=== PATIENT | female | born 1960 | race Caucasian/White ===

== ENCOUNTER 2022-10-01 09:58 | Outpatient (REF) | payer OTHER, SELFPAY ==
--- NOTE | ~2022-10-01 | XR_ITS ---
EXAMINATION: XR CHEST CLINICAL INFORMATION: Cough, unspecified COMPARISON: September 2013. TECHNIQUE: 2 views of the chest were obtained. Patient rotated to the right. FINDINGS: No dominant airspace consolidation or pleural effusion observed. Pulmonary vascularity unremarkable. There is an opacity in the medial right base likely related to a pericardial fat pad. There are thoracic spondylitic changes. XR/XR chest 2V IMPRESSION: No evidence for acute process.
== END 2022-10-01 09:59 | disposition home or self-care (01) ==
LOC: HO.HMGCX 09:58
PROVIDERS: PCP Internal Medicine; Visit Provider Nurse Practitioner Family
DX: R05.9 Cough, unspecified (principal)
CPT/HCPCS: 71046

== ENCOUNTER 2022-12-01 07:44 | Outpatient (REF) | payer OTHER, SELFPAY ==
[2022-12-01 08:24] LABS: MANUAL DIFF FLAG NO
[2022-12-01 08:40] LABS: Basophils Absolute Auto 0.1 X10*3/uL (0.0-0.2); Basophils Percent Auto 0.7 % (0-2); Eosinophils Absolute Auto 0.3 X10*3/uL (0.0-0.4); Eosinophils Percent Auto 3.8 % (0-4); Hematocrit 44.5 % (37.0-47.0); Hemoglobin 14.2 g/dl (12.0-16.0); Imm Gran Abs Auto 0.02 X10*3/uL (0.00-0.03); Imm Gran Pct Auto 0.3 % (0.0-0.4); Lymphocytes Absolute Auto 2.5 X10*3/uL (1.2-4.9); Lymphocytes Percent Auto 33.8 % (20-40); Mean Corpuscular HGB Conc 31.9 g/dl (31.0-35.0); Mean Corpuscular Hemoglobin 27.8 pg (27.0-33.0); Mean Corpuscular Volume 87.3 fL (80.0-98.0); Mean Platelet Volume 9.8 fL (9.4-12.3); Monocytes Absolute Auto 0.6 X10*3/uL (0.1-1.2); Monocytes Percent Auto 7.9 % (2-11); Neutrophils Absolute Auto 3.9 x10*3/uL (2.0-8.3); Neutrophils Percent Auto 53.5 % (45-73); Platelet Count 269 X10*3/uL (160-400); Red Cell Distribution Width 13.4 % (11.0-16.0); White Blood Count 7.3 X10*3/uL (4.8-10.8)
[2022-12-01 09:15] LABS: Alanine Aminotransferase 41 U/L (0-31); Albumin Level 4.4 g/dL (3.5-5.0); Alkaline Phosphatase 108 U/L (39-117); Anion Gap 14 (12-20); Aspartate Amino Transferase 26 U/L (5-31); Bilirubin Total 0.6 mg/dL (0.0-1.0); Blood Urea Nitrogen 13 mg/dL (9-16); Calcium 9.9 mg/dL (8.4-10.2); Carbon Dioxide 26 mmol/L (22-29); Chloride 106 mmol/L (96-108); Cholesterol 243 mg/dL; Estimated Glomerular Filt Rate > 60; Glucose Fasting 96 mg/dL (60-99); HDL Cholesterol 78 mg/dL; LDL Cholesterol Calculated 146 mg/dl; Potassium 4.8 mmol/L (3.3-5.1); Sodium 141 mmol/L (135-145); Total Protein 6.9 g/dL (6.5-8.0); Triglycerides 98 mg/dL
[2022-12-01 09:33] LABS: TSH reflex Free T4 2.03 uIU/mL (0.32-4.0)
== END 2022-12-01 07:45 | disposition home or self-care (01) ==
LOC: HO.LAB 07:44
PROVIDERS: PCP Internal Medicine; Visit Provider Internal Medicine
DX: Z00.01 Encounter for general adult medical examination with abnormal findings (principal); E66.09 Other obesity due to excess calories; J44.9 Chronic obstructive pulmonary disease, unspecified; Z72.0 Tobacco use; E66.9 Obesity, unspecified
CPT/HCPCS: 36415; 80053; 80061; 84443; 85025

== ENCOUNTER 2023-02-25 08:33 | Outpatient (AMB) | payer OTHER, SELFPAY ==
--- NOTE | 2023-02-25 08:38 | AM.OFFWIN_ITS ---
Intake Vital Signs 02/25/23 08:42 BP 124/80 Blood Pressure Location Lt brachial Position Sitting Pulse 78 Pulse Source Pulse Oximeter Temp 98.2 F Temp Source Temporal Artery Scan Pulse Oximetry (%) 98 Oxygen Delivery Method Room Air Intake Visit Reasons: EP, Vomiting (kelley,masked) Intake Note: Patient here because she has been vomiting since saturday and hasnt been able to hold anything down since then. She has constant Nausea that does not subside. Patient Tobacco Use Status: Current someday Tobacco user Allergies No Known Allergies Allergy (Mild, Verified 02/25/23 08:44) NONE Do you need a note to return to daycare/school/sports/work: No HPI EP, Vomiting (kelley,masked) HPI Details Patient presents today with c/o nausea and vomiting. On Saturday night she began vomiting and this lasted about 10 hours. She has not vomited since Saturday morning, however has had persistent nausea since then. She has only been tolerating small sips of gatorade. Denies any fever or diarrhea. Denies any abdominal pain. Denies any dizziness. [facility] Medical History Chronic bronchitis Family History Father Cancer Paternal Grandmother Cancer Mother CAD (coronary artery disease) Social History Alcohol intake: current Alcohol intake frequency: a few times a week Patient Tobacco Use Status: Current someday Tobacco user Cigarettes Per Day: 5 Review of Systems Const All systems reviewed & are unremarkable except as noted in HPI and below Physical Exam Vital Signs: Last Vital Signs Temp 98.2 F 02/25/23 08:42 Pulse 78 02/25/23 08:42 BP 124/80 02/25/23 08:42 Pulse Ox 98 02/25/23 08:42 Oxygen Delivery Method Room Air 02/25/23 08:42 Const General: cooperative and no acute distress Neck Neck: Yes no lymphadenopathy Resp Effort & Inspection: normal respiratory effort and able to speak in complete sentences Auscultation: clear to auscultation bilaterally Cardio Jugular venous distension: no JVD Palpation: normal PMI Rate: regular rate Rhythm: regular rhythm GI Inspection: Yes normal to inspection Palpation (GI): Soft to palpation and No hepatosplenomegaly present Auscultation: Hypoactive bowel sounds present Skin General skin exam: no rashes or lesions noted Extrem General: Yes capillary refill normal and Yes no clubbing, cyanosis or edema Psych Appearance: grossly normal Mental Status: mental status grossly normal Speech and movement: Normal speech and movement present Assessment & Plan Assessment & Plan (1) Nausea: Code(s): R11.0 - Nausea Plan: Ondansetron prn for persistent nausea. Likely a GI virus and symptoms are self- limiting. Discussed that her VS at this time are stable. She should try to take in PO fluids/electrolytes and advance diet as tolerated. If she develops any fever, abdominal pain, dizziness, or does not improve with treatment and conservative measures, she should return to the clinic of further evaluation. She agrees to plan. Medications: New ondansetron 4 mg PO Q8H PRN 21 tabs 0RF nausea and vomiting 7 days R11.0 - Nausea Coding Level of Care Code Est Pt Level 3 (05423) Diagnoses Nausea R11.0
[2023-02-25 08:42] VITALS: BP 124/80; PULSE 78; TEMP 36.8; O2SAT 98
== END 2023-02-25 09:12 | disposition home or self-care (01) ==
PROVIDERS: PCP Internal Medicine; Visit Provider Nurse Practitioner Family
DX: R11.0 Nausea (principal)
CPT/HCPCS: 99213

== ENCOUNTER 2023-04-06 08:08 | Outpatient (REF) | payer OTHER, SELFPAY ==
--- NOTE | ~2023-04-06 | MM_ITS ---
EXAMINATION: MM SCREENING DIGITAL BREAST TOMOSYNTHESIS, BILATERAL CLINICAL INFORMATION: Screening. Asymptomatic. COMPARISON: Mammography: Prior images are available. This study functions as a new baseline. TECHNIQUE: Digital breast tomosynthesis is performed in both the craniocaudal and mediolateral oblique views along with computer-aided detection (CAD). Synthesized 2D images are generated from the tomosynthesis. FINDINGS: There are scattered areas of fibroglandular density (ACR BI-RADS breast composition Category b). There are no significant masses, abnormal calcifications, or other abnormalities. MM/MM tomosynthesis screening BI IMPRESSION: No mammographic evidence of malignancy. ASSESSMENT: BI-RADS BI-RADS 1 - Negative RECOMMENDATION: Routine annual mammography screening. 1 year F/U This examination should not preclude the clinical evaluation of a suspicious palpable abnormality. This patient's information was entered into a reminder system with a target due date for their next mammogram.
== END 2023-04-06 08:09 | disposition home or self-care (01) ==
LOC: HO.MAMMO 08:08
PROVIDERS: PCP Internal Medicine; Visit Provider Internal Medicine
DX: Z12.31 Encounter for screening mammogram for malignant neoplasm of breast (principal)
CPT/HCPCS: 77063; 77067

== ENCOUNTER → 2023-04-06 08:30 | Outpatient (BNV) | payer OTHER, SELFPAY | PROVIDERS: PCP Internal Medicine; Visit Provider Radiology Diagnostic Radiology | DX: Z12.31 Encounter for screening mammogram for malignant neoplasm of breast (principal) | CPT/HCPCS: 77063; 77067 ==

== ENCOUNTER 2023-04-12 08:08 | Outpatient (AMB) | payer OTHER, SELFPAY ==
--- NOTE | 2023-04-12 09:00 | AM.OFFWIN_ITS ---
Intake Vital Signs 04/12/23 09:02 Weight 79.379 kg BP 120/80 Blood Pressure Location Rt brachial Position Sitting Pulse 80 Pulse Source Pulse Oximeter Pulse Oximetry (%) 97 Oxygen Delivery Method Room Air Intake Visit Reasons: EP LT wrist Intake Note: Patient here for possible fracture of wrist, she is unable to move wrist, hold anything. she was standing on a chair and her pants caught on the chair and fell. Patient Tobacco Use Status: Current someday Tobacco user Allergies No Known Allergies Allergy (Mild, Verified 04/12/23 09:03) NONE Do you need a note to return to daycare/school/sports/work: No HPI HPI Comments History of Present Illness Details 908 63-year-old female history of asthma, [place] PD, vertigo since to the clinic for evaluation of left wrist pain status post fall, now complaining left wrist pain swelling, and inability to move left wrist. Patient reports she was standing on a chair, her pants got caught on the chair, she fell to the ground and tried to catch herself with her left wrist, did not hit her head, no loss of consciousness. Left wrist pain worse with movement better at rest 10/10 pain reported. No numbness or tingling, headache, vision changes, dizziness, weakness, nausea, vomiting, abdominal pain, headache, vision changes, dizziness or weakness. Patient not on blood thinners. Physical exam significant for pain with range of motion of left wrist, normal range of motion to right wrist, unable to assess strength to left wrist secondary to pain. + swelling to left wrist and ttp to medial and lateral aspect of L wrist. Wedding band still on L hand. 2+ radial pulses equal bilateral. No wrist drop. Capillary refill less than 2 seconds to by lateral her extremities digit. Normal sensation distally. Concerns for fracture, dislocation versus sprain or strain. No signs of tried to Donovan, neurovascular compromise no signs of traumatic injury to head, neck, chest, abdomen or pelvis Advised patient we should try to remove wedding band she is refusing at this time. Advised to try at home when pain is controled. Plan x-ray, immobilize left wrist and toradol. Educated patient on diagnosis and treatment plan, answered all question, patient verbalizes understanding. At this time patient will be discharged home, advised to return with new or worsening symptoms. Educated on worrisome signs and symptoms and when to return . At this time I feel comfortable discharge home. [facility] Medical History Chronic bronchitis Family History Father Cancer Paternal Grandmother Cancer Mother CAD (coronary artery disease) Social History Alcohol intake: current Alcohol intake frequency: a few times a week Patient Tobacco Use Status: Current someday Tobacco user Cigarettes Per Day: 5 Review of Systems Const Details: Constitutional : No Weight loss, No Fever, No Chills, No Fatigue, No Malaise ENT/Mouth : No sore throat, No Rhinorrhea Eyes: No Eye Pain, No Swelling, No Redness Cardiovascular : No Chest Pain, No SOB, No Dyspnea on Exertion, No Orthopnea, No Edema, No Palpitations Respiratory : No Cough, No Sputum, No Wheezing Gastrointestinal : No Nausea, No Vomiting, No Diarrhea, No Constipation, No abdominal Pain, No Hematochezia, No Melena Genitourinary : No Dysuria, No Urinary Frequency, No Hematuria, Musculoskeletal : + joint pain, No Myalgias, + Joint Swelling Skin : No Skin Lesions, No rash Neuro : No Weakness, No Numbness, No Dizziness, No Headache Psych : No Anxiety/Panic, No Depression All other systems reviewed and are negative All systems reviewed & are unremarkable except as noted in HPI and below Physical Exam Vital Signs: Last Vital Signs Pulse 80 04/12/23 09:02 BP 120/80 04/12/23 09:02 Pulse Ox 97 04/12/23 09:02 Oxygen Delivery Method Room Air 04/12/23 09:02 vss Appearance: Alert.? Oriented X3.? No acute distress.? Head: Normocephalic, atraumatic, no step-offs or deformities Eyes: Pupils equal, round and reactive to light.? CVS: Normal heart rate and rhythm.? Pulses normal.? Respiratory: No respiratory distress.? Breath sounds normal.? Abdomen: Soft and nontender.? Skin: Skin warm and dry.? Normal skin color.? Normal skin turgor.? Extremities: No lower extremity edema.? No calf ttp.+pain with range of motion of left wrist, normal range of motion to right wrist, unable to assess strength to left wrist secondary to pain.+ swelling to left wrist and ttp to medial and lateral aspect of L wrist. Wedding band still on L hand. 2+ radial pulses equal bilateral. No wrist drop. Capillary refill less than 2 seconds to by lateral her extremities digit. Normal sensation distally. Back: No midline tenderness, no C-spine tenderness, full range of motion, no CVA tenderness bilaterally Neuro: Oriented X 3.? No motor deficit.? No sensory deficit. CN 2-12 intact Assessment & Plan Assessment & Plan (1) Left wrist pain: Code(s): M25.532 - Pain in left wrist Plan Take your medications as prescribed. If you were prescribed antibiotics today, it is important that you take your medication to their entirety, do not skip any doses, do not finish them early. Follow-up with your primary care provider this week. Return to the emergency department with new or worsening symptoms. Such as fevers, chills, chest pain, shortness of breath, nausea, vomiting, dizziness, headache, vision changes, lethargy In case of emergency call 911 Orders: Orders XR wrist LT min 3V Today M25.532 - Pain in left wrist AMB Ketorolac Injection Today M25.532 - Pain in left wrist Referrals Orthopedics Referral M25.532 - Pain in left wrist Medications: New ketorolac 10 mg PO Q8H PRN 15 tabs 0RF pain ketorolac 30 mg IM ONCE 1 mL 0RF M25.532 - Pain in left wrist Coding Level of Care Code Est Pt Level 3 (25312) Diagnoses Left wrist pain M25.532
[2023-04-12 09:02] VITALS: BP 120/80; PULSE 80; O2SAT 97
== END 2023-04-12 09:58 | disposition home or self-care (01) ==
PROVIDERS: PCP Internal Medicine; Visit Provider Physician Assistant
DX: M25.532 Pain in left wrist (principal)
CPT/HCPCS: 96372; 99213; J1885

== ENCOUNTER 2023-04-12 09:26 | Outpatient (REF) | payer OTHER, SELFPAY ==
--- NOTE | ~2023-04-12 | XR_ITS ---
EXAMINATION: XR WRIST, LEFT CLINICAL INFORMATION: Left wrist pain COMPARISON: Previous dated 12/04/2013 TECHNIQUE: PA, lateral, and oblique views of the left wrist. FINDINGS: No acute finding. Some early degenerative changes are noted. Articulation with the radius with the lunate and navicular and the articulation of the navicular with the multangulars and base of the thumb. No acute fracture or dislocation is seen. There is no bony erosion. No osteopenia. XR/XR wrist LT min 3V IMPRESSION: Findings suggest some early degenerative changes. No acute finding
== END 2023-04-12 09:27 | disposition home or self-care (01) ==
LOC: HO.HMGCX 09:26
PROVIDERS: PCP Internal Medicine; Visit Provider Physician Assistant
DX: M25.532 Pain in left wrist (principal)
CPT/HCPCS: 73110

== ENCOUNTER 2023-07-08 08:31 | Outpatient (AMB) | payer OTHER, SELFPAY ==
--- NOTE | 2023-07-08 08:33 | AM.OFFWIN_ITS ---
Intake Vital Signs 07/08/23 08:34 Height 5 ft 3 in Weight 175 lb BMI 31.0 BP 122/80 Blood Pressure Location Rt brachial Position Sitting Pulse 76 Pulse Source Pulse Oximeter Temp 98.2 F Temp Source Temporal Artery Scan Pulse Oximetry (%) 98 Oxygen Delivery Method Room Air Intake Visit Reasons: EST/sore throat (lobby masked) Intake Note: pt is here for c.o chest congestion, cough, ear pain bilateral Patient Tobacco Use Status: Current someday Tobacco user Allergies No Known Allergies Allergy (Mild, Verified 07/08/23 08:36) NONE Do you need a note to return to daycare/school/sports/work: Yes HPI EST/sore throat (lobby masked) HPI Details 63 year old female patient with PMH of C OPD presents today with a 1 week history of cough, nasal congestion, intermittent shortness of breath, b/l ear pain. Her recently and she had been around many people in close contact due to services etc. She has been using her albuterol inhaler with some benefit. Denies any fever or chills. [facility] Medical History Chronic bronchitis Family History Father Cancer Paternal Grandmother Cancer Mother CAD (coronary artery disease) Social History Alcohol intake: current Alcohol intake frequency: a few times a week Patient Tobacco Use Status: Current someday Tobacco user Cigarettes Per Day: 5 Review of Systems Const All systems reviewed & are unremarkable except as noted in HPI and below Physical Exam Const General: cooperative and no acute distress HEENT Head: Yes normal to inspection Ears: hearing grossly normal bilaterally, external ears normal and TM abnormal (erythematous, bulging b/l R>L) General nose exam: Normal external nose present, Normal nares present and Nasal discharge present mucoid Face and sinus: Yes normal facial exam Mouth: Normal oral and palatal mucosa present and moist mucous membranes Throat: Yes posterior oropharynx abnormal (mild erythema) Neck Neck: Yes no lymphadenopathy Resp Effort & Inspection: Actively coughing Quality: actively coughing Auscultation: rhonchi (otherwise clear LS) upper bilaterally Cardio Jugular venous distension: no JVD Palpation: normal PMI Rate: regular rate Rhythm: regular rhythm Skin General skin exam: no rashes or lesions noted Extrem General: Yes capillary refill normal and Yes no clubbing, cyanosis or edema Psych Appearance: grossly normal Mental Status: mental status grossly normal Speech and movement: Normal speech and movement present Assessment & Plan Assessment & Plan (1) Acute bronchitis with chronic obstructive pulmonary disease (COPD): Code(s): J44.0 - Chronic obstructive pulmonary disease with (acute) lower respiratory infection; J20.9 - Acute bronchitis, unspecified Plan: Will start patient on augmentin bid. Reviewed indications, use possible s/e. She can continue to use her albuterol inhaler prn. She declines need for prednisone or viral testing. Advised ongoing otc cold/flu medication as needed for symptomatic treatment. She should continue her breathing exercises at home. If she does not improve with treatment she should return to the clinic for further evaluation. She verbalizes understanding and agrees to plan. (2) Bilateral otitis media: Code(s): H66.93 - Otitis media, unspecified, bilateral Qualifiers: Otitis media type: unspecified nonsuppurative Qualified Code(s): H65.93 - Unspecified nonsuppurative otitis media, bilateral Plan As above. Medications: New amoxicillin-pot clavulanate 875-125 mg 1 tab PO BID 20 tabs 0RF 10 days H65.93 - Unspecified nonsuppurative otitis media, bilateral, J20.9 - Acute bronchitis, unspecified, J44.0 - Chronic obstructive pulmonary disease with (acute) lower respiratory infection Coding Level of Care Code Est Pt Level 3 (14216) Diagnoses Acute bronchitis with chronic obstructive pulmonary disease (COPD) J44.0; J20.9 Bilateral non-suppurative otitis media H65.93 Otitis media type: unspecified nonsuppurative
[2023-07-08 08:34] VITALS: BP 122/80; PULSE 76; TEMP 36.8; O2SAT 98; BMI 31.0
== END 2023-07-08 08:49 | disposition home or self-care (01) ==
PROVIDERS: PCP Internal Medicine; Visit Provider Nurse Practitioner Family
DX: J44.0 Chronic obstructive pulmonary disease with (acute) lower respiratory infection (principal); J20.9 Acute bronchitis, unspecified; H65.93 Unspecified nonsuppurative otitis media, bilateral
CPT/HCPCS: 99213

== ENCOUNTER 2023-10-17 14:38 | Outpatient (AMB) | payer OTHER, SELFPAY ==
[2023-10-17 14:40] VITALS: BP 126/88; PULSE 83; TEMP 36.8; O2SAT 96
--- NOTE | 2023-10-17 14:40 | AM.OFFWIN_ITS ---
Intake Vital Signs 10/17/23 14:40 Height 5 ft 3 in BP 126/88 Blood Pressure Location Lt brachial Position Sitting Pulse 83 Pulse Source Pulse Oximeter Temp 98.2 F Temp Source Oral Pulse Oximetry (%) 96 Oxygen Delivery Method Room Air Intake Visit Reasons: EP bronchial chest pain (lobby) Intake Note: Pt is here for a cough and sob with a wheeze that she has had for about a week that has been getting worse pt says she chest pain when she coughs says the pain is mostly on the right side Patient Tobacco Use Status: Current someday Tobacco user Allergies No Known Allergies Allergy (Mild, Verified 10/17/23 14:42) NONE Medication List - Last Reconciled 10/17/23 by CARLEY Spear albuterol sulfate 90 mcg/actuation 1 inh inhalation QID PRN amoxicillin-pot clavulanate 500-125 mg (Augmentin) 1 tab PO BID 7 days HPI HPI Comments History of Present Illness Details 63-year-old female presents today compla ining of increasing cough pleuritic chest pain time the last 2 days. She states she had home on commitment pleuritic pain last week but now has significant congestion and cough that is increasing in intensity over the last 2 days. She has a past medical history of COPD of which she is using a albuterol inhaler p.r.n. she denies any fever or chills her pleuritic who is on the right not on the left [facility] Medical History Chronic bronchitis Family History Father Cancer Paternal Grandmother Cancer Mother CAD (coronary artery disease) Social History Alcohol intake: current Alcohol intake frequency: a few times a week Patient Tobacco Use Status: Current someday Tobacco user Cigarettes Per Day: 5 Review of Systems Eyes Reports no additional complaints ENT Reports nasal congestion Card Reports chest pain (pleuritic CP) and Reports dyspnea Resp Reports chest congestion, Reports cough and Reports dyspnea GI Reports no additional complaints Physical Exam Vital Signs: Last Vital Signs Temp 98.2 F 10/17/23 14:40 Pulse 83 10/17/23 14:40 BP 126/88 10/17/23 14:40 Pulse Ox 96 10/17/23 14:40 Oxygen Delivery Method Room Air 10/17/23 14:40 Const General: ill appearing HEENT Head: Yes normal to inspection, Yes normocephalic and Yes atraumatic Ears: hearing grossly normal bilaterally and TM abnormal erythematous General nose exam: Normal external nose present Throat: Yes posterior oropharynx normal Resp Effort & Inspection: normal respiratory effort Auscultation: rales on the left in the lower lung cook Cardio Rate: regular rate Rhythm: regular rhythm Office Procedures Nebulizer Treatment Nebulizer Treatment [id number]/MDI RX initial, or Nebulizer Subsequent Treatment Office Meds albuterol sulfate 2.5 mg/3 mL (0.083 %) solution for nebulization Performing Provider: CARLEY Spear Performing Location: [facility] [place] Walk In [facility] Documented (not given) by: Caty Golden RN on 10/17/23 15:56 Reason Not Given: No Longer Necessary ipratropium 0.5 mg-albuterol 3 mg (2.5 mg base)/3 mL nebulization soln Performing Provider: CARLEY Spear Performing Location: [facility] [place] Walk In [facility] [place] Administered by: Caty Golden RN on 10/17/23 15:56 Dose Route Admin Location Dispensed Lot Number Expiration Date [facility] Pharmacists 3 mL inhalation 3 mL [id number] 04/28/24 [id number] [facility] Assessment & Plan Assessment & Plan (1) Cough: Code(s): R05.9 - Cough, unspecified Plan: The patient will take antibiotics are use albuterol b.i.d. for 5 days regular rate. She has a follow-up scheduled with her PCP within the next month (2) Asthmatic bronchitis with acute exacerbation: Code(s): J45.901 - Unspecified asthma with (acute) exacerbation Plan: see plan Plan see plan Orders: Orders XR chest 2V Today R05.9 - Cough, unspecified AMB Nebulizer Treatment Today R05.9 - Cough, unspecified Medications: New amoxicillin-pot clavulanate 500-125 mg (Augmentin) 1 tab PO BID 14 tabs 0RF 7 days Coding Level of Care Code Est Pt Level 3 (31497) Diagnoses Cough R05.9 Asthmatic bronchitis with acute exacerbation J45.901 CPT Codes Nebulizer Treatment - Nebulizer Treatment, initial or subsequent: 03453- Nebulizer/MDI RX initial, or Nebulizer Subsequent Treatment ([id number])
== END 2023-10-17 16:31 | disposition home or self-care (01) ==
PROVIDERS: PCP Internal Medicine; Visit Provider Physician Assistant Medical
DX: R05.9 Cough, unspecified (principal); J45.901 Unspecified asthma with (acute) exacerbation
CPT/HCPCS: 94640; 99213; J7620

== ENCOUNTER 2023-10-17 14:58 | Outpatient (REF) | payer OTHER, SELFPAY ==
--- NOTE | ~2023-10-17 | XR_ITS ---
EXAMINATION: XR CHEST CLINICAL INFORMATION: Cough. COMPARISON: 10/01/2022 TECHNIQUE: 2 views of the chest were obtained. FINDINGS: Lungs are well expanded and without evidence of acute disease. No interstitial infiltrate, consolidation or pleural effusion. Cardiac silhouette is normal in size. Again noted are the opacities at the medial bases from the paracardiac fat pads. The hilar contours are normal. Mild spondylosis of the thoracic spine. XR/XR chest 2V IMPRESSION: No evidence of pneumonia. No acute pulmonary disease.
== END 2023-10-17 14:59 | disposition home or self-care (01) ==
LOC: HO.HMGCX 14:58
PROVIDERS: PCP Internal Medicine; Visit Provider Physician Assistant Medical
DX: R05.9 Cough, unspecified (principal)
CPT/HCPCS: 71046

== ENCOUNTER 2023-11-27 14:20 | Outpatient (AMB) | payer OTHER, SELFPAY ==
--- NOTE | 2023-11-27 14:30 | A.OFFPC_ITS ---
Vital Signs 11/27/23 14:31 Height 5 ft 3 in Weight 180 lb BMI 31.9 BP 120/76 Blood Pressure Location Rt brachial Position Sitting Pulse 85 Pulse Source Pulse Oximeter Pulse Oximetry (%) 97 Oxygen Delivery Method Room Air Intake Visit Reasons: Physical Exam - see comments Allergies No Known Allergies Allergy (Mild, Verified 11/27/23 14:32) NONE Medication List - Last Reconciled 11/27/23 by Marlene Dumont MD albuterol sulfate 90 mcg/actuation 1 inh inhalation QID PRN Tobacco use date assessed: 11/27/23 Dental Screening Dental Screen Date: 11/27/23 Did you have a dental visit in the last 12 months?: Yes Did you have a dental problem in the last 6 months where you did not have access to dental care?: No Was dental information given to patient?: Patient has dentist HPI Physical Exam - see comments HPI Details Patient is a 63-year-old female with a history of smoking years Patient lost her recently she is having difficulty coping with the loss Have offered her medication but she declined And also declined to have therapy Patient says that she is ready to quit smoking but because of her depression she is having difficulty However she does not want any help She declined to do colonoscopy but agrees to do Cologuard, order placed Patient has appointment with OBGYN And she had mammogram March of last year She also had labs last year which were all normal except for 1 liver enzyme which was 41 We will repeat it again next year. BMI is elevated need to lose weight. She most likely have COPD, last time she had inhaler sent it was too expensive so she never got it She is requesting albuterol inhaler which I have sent an I have also sent Symbicort for the patient She will get back to me if it is too expensive, pharmacy can help her find the inhaler that she can afford I have also offered her updraft treatment option which she declined at this time. [facility] Medical History Chronic bronchitis Surgical History Hx of tonsillectomy H/O right knee surgery Family History Father Cancer Paternal Grandmother Cancer Mother CAD (coronary artery disease) Social History Housing: Apartment Alcohol intake: current Alcohol intake frequency: a few times a week Patient Tobacco Use Status: Current someday Tobacco user Tobacco use type: Cigarette Cigarettes Per Day: 5 e-Cigarette/Vaping Use: Never Used service: No Current occupational status: employed Cognitive needs: No Hearing needs: No Vision needs: Yes Questionnaire PHQ-9 Over the last 2 weeks, how often have you been bothered by any of the following problems? 1. Little interest or pleasure in doing things: not at all 2. Feeling down, depressed, or hopeless: several days 3. Trouble falling or staying asleep, or sleeping too much: not at all 4. Feeling tired or having little energy: several days 5. Poor appetite or overeating: not at all 6. Feeling bad about yourself - or that you are a failure or have let yourself or your family down: not at all 7. Trouble concentrating on things, such as reading the newspaper or watching television: not at all 8. Moving or speaking so slowly that other people could have noticed. Or the opposite - being so fidgety or restless that you have been moving around a lot more than usual: not at all 9. Thoughts that you would be better off or of hurting yourself in some way: not at all Total score: 2 Depression Screening Interpretation: Negative Depression Screening Done: Yes 98395 - PHQ-9 Billing: Yes Source: Developed by Drs. Valentín Russo, Yadi Cho, Quoc Son and colleagues, with an educational jef from [employer]. Thrive Questionnaire Date Thrive assessed: 11/27/23 I am a: Patient What is your living situation today?: I have a steady place to live Within the past 12 months, did the food you bought not last and you didn't have the money to get more?: Never true Within the past 12 months, did you worry whether your food would run out before you got money to buy more?: Never true Do you have trouble paying for medicines?: No Do you have trouble getting transportation to medical appointments?: No Do you have trouble paying your heating and electricity bill?: No Do you have trouble taking care of your child, family member or friend?: No Do you have trouble with day-to-day activities such as bathing, preparing meals, shopping, managing finances, etc.?: No Are you currently unemployed and looking for a job?: No Are you interested in more education?: No Please select the resources that you would like help with: None Currently or been in a relationship where the following occur: no concerns reported THRIVE Score: 0 AUDIT C Alcohol Use Questionnaire (AUDIT-C) 1. How often do you have a drink containing alcohol?: Monthly or less 2. How many drinks containing alcohol do you have on a typical day when you are drinking?: 1 or 2 3. How often do you have six or more drinks on one occasion?: Never Total Score: 1 Score Reviewed/Action Taken: Yes KIRAN-7 AMB Questionnaire KIRAN-7 Date KIRAN - 7 assessed: 11/27/23 Feeling nervous, anxious, or on edge: 1 = Several days Not being able to stop or control worryin = Several days Worrying too much about different things: 1 = Several days Trouble relaxin = Several days Being so restless that it is hard to sit still: 0 = Not at all Becoming easily annoyed or irritable: 0 = Not at all Feeling afraid as if something awful might happen: 0 = Not at all Total KIRAN-7 score (0-4 normal; 5-9 mild; 10-14 moderate; 15-21 severe): 4 Source: Developed by Drs. Valentín Russo, Yadi Cho, Quoc Son and colleagues, with an educational jef from [employer]. KIRAN-7 Assessment Billing KIRAN-7 Assessment Tool: KIRAN-7 Assessment 04660 Review of Systems Const Denies chills, Denies fever(s) and Denies headache(s) Eyes Denies blurry vision ENT Denies headache(s), Denies nasal discharge, Denies nasal obstruction, Denies odynophagia and Denies sinus pain Card Denies chest pain at rest and Denies chest pain with activity Resp Denies hemoptysis GI Denies diarrhea, Denies odynophagia, Denies vomiting and Denies hematemesis Reports as per HPI Musc Denies abnormal gait Skin/Breast Reports as per HPI Neuro Denies Neuro-related abnormal movements, Denies Abnormal speech present, Denies abnormal gait, Denies headache(s) and Denies Sensory deficit (Neuro) Psych Denies mood swings and Denies paranoia Endo Reports as per HPI Gurdeep/Lymph Reports as per HPI Aller/Immun Reports as per HPI Physical exam (Primary Care) Vital Signs: Last Vital Signs Pulse 85 11/27/23 14:31 BP 120/76 11/27/23 14:31 Pulse Ox 97 11/27/23 14:31 Oxygen Delivery Method Room Air 11/27/23 14:31 BMI result Body Mass Index 31.9 Tobacco/Smoking Status: Tobacco use Status Tobacco use date assessed 11/27/23 11/27/23 14:36 Patient Tobacco Use Status Current someday Tobacco 11/27/23 14:36 Tobacco use type Cigarette 11/27/23 14:36 e-Cigarette/Vaping Use Never Used 11/27/23 14:36 PHQ-9: PHQ-9 Score PHQ-9: Total score 2 11/27/23 15:16 Depression Screening Interpretation: Negative Thrive Assessment: Date of Thrive Assessment Date Thrive assessed 11/27/23 11/27/23 15:16 Currently or been in a relationship where the following occur: no concerns reported Const General: cooperative, comfortable and no acute distress Orientation/consciousness: patient oriented x3 HENMT Head: Yes normocephalic and Yes atraumatic Eyes General: appearance normal, both eyes and all related structures Pupils: Equal, round and reactive pupils present EOM: EOMs intact bilaterally Neck Neck: Yes supple and No lymphadenopathy Thyroid: Thyroid normal Lymphatic: no lymphadenopathy noted Resp Effort & Inspection: normal respiratory effort and able to speak in complete sentences Auscultation: clear to auscultation bilaterally Cardio Heart sounds: S1 normal heart sound present and S2 normal heart sound present GI Palpation (GI): Soft to palpation and nontender Auscultation: normal bowel sounds General: Yes no CVA tenderness Back/Spine/Pelvis Back: no CVA tenderness Skin General skin exam: elasticity normal and turgor normal Neuro General: patient oriented x3 and gait normal Cranial nerves: Yes Equal, round and reactive pupils present Speech: No Abnormal speech present Sensory Exam: No Sensory deficit (Neuro) Coordination: tandem gait normal and Romberg test negative Extrem General: Yes normal exam except as noted and No edema Assessment and Plan Assessment & Plan (1) Skin cancer screening: Code(s): Z12.83 - Encounter for screening for malignant neoplasm of skin (2) Encounter for general adult medical examination with abnormal findings: Code(s): Z00.01 - Encounter for general adult medical examination with abnormal findings (3) Tobacco abuse: Code(s): Z72.0 - Tobacco use (4) COPD (chronic obstructive pulmonary disease): Code(s): J44.9 - Chronic obstructive pulmonary disease, unspecified Qualifiers: COPD type: unspecified COPD Qualified Code(s): J44.9 - Chronic obstructive pulmonary disease, unspecified (5) Obesity due to excess calories: Code(s): E66.09 - Other obesity due to excess calories Qualifiers: Body mass index: BMI 31.0-31.9 Obesity classification: adult class 1 (BMI 30 - 34.9) Serious obesity comorbidity presence: without serious comorbidity Qualified Code(s): E66.09 - Other obesity due to excess calories; Z68.31 - Body mass index [BMI] 31.0-31.9, adult (6) Grieving: Code(s): F43.21 - Adjustment disorder with depressed mood Plan Patient is a 63-year-old female with a history of smoking years Patient lost her recently she is having difficulty coping with the loss Have offered her medication but she declined And also declined to have therapy Patient says that she is ready to quit smoking but because of her depression she is having difficulty However she does not want any help She declined to do colonoscopy but agrees to do Cologuard, order placed Patient has appointment with OBGYN And she had mammogram March of last year She also had labs last year which were all normal except for 1 liver enzyme w hich was 41 We will repeat it again next year. BMI is elevated need to lose weight. She most likely have COPD, last time she had inhaler sent it was too expensive so she never got it She is requesting albuterol inhaler which I have sent an I have also sent Symbicort for the patient She will get back to me if it is too expensive, pharmacy can help her find the inhaler that she can afford I have also offered her updraft treatment option which she declined at this time. Patient has a lot of moves all over body, have placed a Dermatology consultation Orders: Referrals Cologuard Test Z12.11 - Encounter for screening for malignant neoplasm of colon, Z12.12 - Encounter for screening for malignant neoplasm of rectum Dermatology Referral Z12.83 - Encounter for screening for malignant neoplasm of skin Medications: New budesonide-formoterol 160-4.5 mcg/actuation (Symbicort) 2 puffs inhalation BID 10.2 grams 3RF 30 days J45.909 - Unspecified asthma, uncomplicated Refilled albuterol sulfate 90 mcg/actuation 1 inh inhalation QID PRN 6.7 grams 1RF shortness of breath or wheezing Coding Level of Care Code Est Pt Prev Care 40-64y(12528) Diagnoses Skin cancer screening Z12.83 Encounter for general adult medical examination with abnormal findings Z00.01 Tobacco abuse Z72.0 Chronic obstructive pulmonary disease, unspecified COPD type J44.9 COPD type: unspecified COPD Class 1 obesity due to excess calories without serious comorbidity with body mass index (BMI) of 31.0 to 31.9 in adult E66.09; Z68.31 Body mass index: BMI 31.0-31.9 Obesity classification: adult class 1 (BMI 30 - 34.9) Serious obesity comorbidity presence: without serious comorbidity Grieving F43.21 Additional Codes KIRAN-7 Assessment Billing - KIRAN-7 Assessment Tool: KIRAN-7 Assessment [id number] ([id number])
[2023-11-27 14:31] VITALS: BP 120/76; PULSE 85; O2SAT 97; BMI 31.9
== END 2023-11-27 15:00 | disposition home or self-care (01) ==
PROVIDERS: Visit Provider Internal Medicine
DX: Z00.00 Encounter for general adult medical examination without abnormal findings (principal); J44.9 Chronic obstructive pulmonary disease, unspecified; E66.09 Other obesity due to excess calories; Z68.31 Body mass index [BMI] 31.0-31.9, adult; Z12.83 Encounter for screening for malignant neoplasm of skin; Z72.0 Tobacco use; F43.21 Adjustment disorder with depressed mood
CPT/HCPCS: 99396

== ENCOUNTER 2024-05-22 12:59 | Outpatient (AMB) | payer OTHER, SELFPAY ==
--- NOTE | 2024-05-22 13:01 | AM.OFFWIN_ITS ---
Intake Vital Signs 05/22/24 13:13 Height 5 ft 3 in Weight 185 lb BMI 32.8 BP 110/76 Blood Pressure Location Rt brachial Position Sitting Pulse 95 Pulse Source Pulse Oximeter Temp 98.3 F Temp Source Oral Pulse Oximetry (%) 96 Oxygen Delivery Method Room Air Intake Visit Reasons: EP diff breathing, earache, chest Intake Note: Patient here for SOB,fevers, chest tightness, cough that started yesterday. Patient Tobacco Use Status: Current someday Tobacco user Allergies No Known Allergies Allergy (Mild, Verified 05/22/24 13:14) NONE HPI HPI Comments History of Present Illness Details Patient is a 64-year-old female with a past medical history of COPD complaining of 2 days of shortness of breath, fevers with a T-max of 100.8 degrees F, chest tightness and wheezing, a dry cough and nasal congestion. She is also stating she has some left ear pain. She denies any sinus pain or headaches. She has been using [id number] cold medicine and Tylenol for the fevers with some relief. She tells me she has been using her albuterol inhaler every few hours. She tells me she has used prednisone in the past but she does not like it because it makes her feel very anxious. 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 She says that this time with a year she usually gets sick with this type of illness. She also tells me that she quit smoking 1 week ago. [facility] Medical History Chronic bronchitis Surgical History Hx of tonsillectomy H/O right knee surgery Family History Father Cancer Paternal Grandmother Cancer Mother CAD (coronary artery disease) Social History Housing: Apartment Alcohol intake: current Alcohol intake frequency: a few times a week Patient Tobacco Use Status: Current someday Tobacco user Tobacco use type: Cigarette Cigarettes Per Day: 5 e-Cigarette/Vaping Use: Never Used service: No Current occupational status: employed Cognitive needs: No Hearing needs: No Vision needs: Yes Review of Systems Const All systems reviewed & are unremarkable except as noted in HPI and below Physical Exam Vital Signs: Last Vital Signs Temp 98.3 F 05/22/24 13:13 Pulse 95 05/22/24 13:13 BP 110/76 05/22/24 13:13 Pulse Ox 96 05/22/24 13:13 Oxygen Delivery Method Room Air 05/22/24 13:13 BMI result Body Mass Index 32.8 Const General: cooperative, healthy appearing, comfortable and no acute distress Orientation/consciousness: patient oriented x3 Limitations: no limitations HEENT Head: Yes normal to inspection Ears: hearing grossly normal bilaterally, external ears normal and TM's normal bilaterally General nose exam: Normal external nose present, Normal nares present and No nasal discharge present Face and sinus: Yes normal facial exam and Yes sinuses nontender Mouth: Normal oral and palatal mucosa present and moist mucous membranes Throat: Yes tonsils normal, Yes uvula midline and Yes posterior oropharynx abnormal (Erythema) Eyes General: appearance normal, both eyes and all related structures Neck Neck: Yes normal visual inspection Resp Effort & Inspection: normal respiratory effort, able to speak in complete sentences, Actively coughing, no respiratory distress, not tachypneic, no tripod positioning and no use of accessory muscles Auscultation: wheezes expiratory wheezes and throughout and diminished lung sounds diffuse Cardio Rate: regular rate Rhythm: regular rhythm Heart sounds: normal S1 and S2 Skin General skin exam: no rashes or lesions noted Neuro General: patient oriented x3 Extrem General: Yes normal to inspection and Yes no clubbing, cyanosis or edema Assessment & Plan Assessment & Plan (1) Asthmatic bronchitis with acute exacerbation: Code(s): J45.901 - Unspecified asthma with (acute) exacerbation Qualifiers: Asthma persistence: intermittent Asthma severity: mild Qualified Code(s): J45.21 - Mild intermittent asthma with (acute) exacerbation Plan: Vital signs are stable, patient well-appearing however lung sounds are very tight and dim with wheezing. Gave her an in office DuoNeb nebulizer treatment with great relief, no wheezing upon ascultation. Patient is hesitant to use prednisone but she agreed to let me send it to her pharmacy so if she gets worse, she can pick it up and use it. She says it makes her very anxious and she has the anniversaries of her and son's coming up and she does not want to exacerbate her anxiety. I also sent a Z-Fabio for the anti- inflammatory effects. Encouraged patient to continue not smoking. Plan See above Orders: Orders AMB Nebulizer Treatment Today J45.901 - Unspecified asthma with (acute) exacerbation Medications: New azithromycin For 250 mg dose pack: take 500 mg today (day 1), then 250 mg for 4 days (days 2-5) PO 6 tabs 0RF prednisone 20 mg PO QAM 5 tabs 0RF ipratropium-albuterol 0.5 mg-3 mg(2.5 mg base)/3 mL 3 mL inhalation ONCE 3 mL 0RF wheezing J45.901 - Unspecified asthma with (acute) exacerbation Coding Level of Care Code Est Pt Level 4 (66593) Diagnoses Mild intermittent asthmatic bronchitis with acute exacerbation J45.21 Asthma persistence: intermittent Asthma severity: mild
[2024-05-22 13:13] VITALS: BP 110/76; PULSE 95; TEMP 36.8; O2SAT 96; BMI 32.8
== END 2024-05-22 13:56 | disposition home or self-care (01) ==
PROVIDERS: PCP Internal Medicine; Visit Provider Physician Assistant
DX: J45.21 Mild intermittent asthma with (acute) exacerbation (principal)

== ENCOUNTER → 2024-05-22 12:59 | Outpatient (BNVA) | payer OTHER, SELFPAY | PROVIDERS: PCP Internal Medicine; Visit Provider Physician Assistant ==

== ENCOUNTER 2024-06-23 15:37 | Outpatient (AMB) | payer OTHER, SELFPAY ==
[2024-06-23 15:44] VITALS: BP 126/90; PULSE 78; TEMP 36.8; O2SAT 96; BMI 33.7
--- NOTE | 2024-06-23 15:44 | AM.OFFWIN_ITS ---
Intake Vital Signs 06/23/24 15:44 Height 5 ft 3 in Weight 190 lb BMI 33.7 BP 126/90 H Blood Pressure Location Lt brachial Position Sitting Pulse 78 Pulse Source Pulse Oximeter Temp 98.2 F Temp Source Oral Pulse Oximetry (%) 96 Oxygen Delivery Method Room Air Intake Visit Reasons: EP-sore throat, rt side ear pain Intake Note: Patient here for right ear pain that is causing the right side of her throat hurt and hurts to chew which started about 2 days ago. Patient Tobacco Use Status: Former Tobacco user Allergies No Known Allergies Allergy (Mild, Verified 05/22/24 13:14) NONE Do you need a note to return to daycare/school/sports/work: No HPI HPI Comments History of Present Illness Details 64 y/o female patient who presents to [facility] walk in clinic with c/o right ear pain that radiates down to the Jaw and throat x 2 days. Denies any dental problems. Denies any fevers, chills, nausea or vomiting. Reports taking NSAIDs and Acetaminophen with no pain relief. PFS Medical History Chronic bronchitis Surgical History Hx of tonsillectomy H/O right knee surgery Family History Father Cancer Paternal Grandmother Cancer Mother CAD (coronary artery disease) Social History Housing: Apartment Alcohol intake: current Alcohol intake frequency: a few times a week Patient Tobacco Use Status: Former Tobacco user Tobacco use type: Cigarette Cigarettes Per Day: 5 e-Cigarette/Vaping Use: Never Used service: No Current occupational status: employed Cognitive needs: No Hearing needs: No Vision needs: Yes Review of Systems Const All systems reviewed & are unremarkable except as noted in HPI and below Physical Exam Vital Signs: Last Vital Signs Temp 98.2 F 06/23/24 15:44 Pulse 78 06/23/24 15:44 BP 126/90 H 06/23/24 15:44 Pulse Ox 96 06/23/24 15:44 Oxygen Delivery Method Room Air 06/23/24 15:44 BMI result Body Mass Index 33.7 Const General: cooperative and no acute distress Nutritional Appearance: obese Orientation/consciousness: patient oriented x3 HEENT Head: Yes normocephalic Ears: external ears normal and TM's normal bilaterally General nose exam: Normal external nose present Face and sinus: Yes sinuses nontender Mouth: tongue normal and moist mucous membranes Teeth and gingiva: caries and poor dentition Throat: Yes tonsils normal and Yes uvula midline Resp Effort & Inspection: normal respiratory effort Auscultation: clear to auscultation bilaterally Cardio Heart sounds: S1 normal heart sound present and S2 normal heart sound present Neuro General: patient oriented x3 Assessment & Plan Assessment & Plan (1) Otalgia: Code(s): H92.09 - Otalgia, unspecified ear Qualifiers: Laterality: right Qualified Code(s): H92.01 - Otalgia, right ear Plan: NSAIDs for pain relief. Ear clear no signs of infection. IceHot RTC if pain worse. Medications: New naproxen 500 mg PO BID 30 tabs 0RF H92.01 - Otalgia, right ear Coding Level of Care Code Est Pt Level 3 (00244) Diagnoses Right ear pain H92.01 Laterality: right Time Spent (min) 15
== END 2024-06-23 16:33 | disposition home or self-care (01) ==
PROVIDERS: PCP Internal Medicine; Visit Provider Nurse Practitioner Family
DX: H92.01 Otalgia, right ear (principal)

== ENCOUNTER → 2024-06-23 15:37 | Outpatient (BNVA) | payer OTHER, SELFPAY | PROVIDERS: PCP Internal Medicine; Visit Provider Nurse Practitioner Family ==

== ENCOUNTER 2024-07-27 13:37 | Outpatient (REF) | payer OTHER, SELFPAY ==
--- NOTE | ~2024-07-27 | XR_ITS ---
EXAMINATION: XR CHEST CLINICAL INFORMATION: R05.9 - Cough, unspecified COMPARISON: None available. TECHNIQUE: 2 views of the chest were obtained. FINDINGS: No significant abnormality is noted involving the heart, lungs, mediastinum, bony thorax or soft tissues. XR/XR chest 2V IMPRESSION: Unremarkable chest examination. Electronically signed by: Yury Magana MD 07/28/2024 11:00 AM [facility] [place]
== END 2024-07-27 13:38 | disposition home or self-care (01) ==
LOC: HO.HMGCX 13:37
PROVIDERS: PCP Internal Medicine; Visit Provider Physician Assistant
DX: R05.9 Cough, unspecified (principal); J22 Unspecified acute lower respiratory infection; Z87.891 Personal history of nicotine dependence
CPT/HCPCS: 71046; 94640

== ENCOUNTER 2024-07-27 13:37 | Outpatient (AMB) | payer OTHER, SELFPAY ==
--- NOTE | 2024-07-27 14:13 | AM.OFFWIN_ITS ---
Intake Vital Signs 07/27/24 14:14 Height 5 ft 3 in Weight 190 lb BMI 33.7 BP 124/80 Blood Pressure Location Rt brachial Position Sitting Pulse 90 Pulse Source Pulse Oximeter Temp 98 F Temp Source Oral Pulse Oximetry (%) 98 Oxygen Delivery Method Room Air Intake Visit Reasons: EP SOB, constant cough Intake Note: Patient here for SOB, cough that has been present since april. Patient Tobacco Use Status: Former Tobacco user Allergies No Known Allergies Allergy (Mild, Verified 05/22/24 13:14) NONE Do you need a note to return to daycare/school/sports/work: No HPI HPI Comments History of Present Illness Details History - The patient is a 64-year-old female pr esenting with persistent respiratory issues, primarily chest tightness and mucus production, since May 21. - Initially treated with medication and a breathing treatment; however, the symptoms persisted and worsened despite a course of a Z-Fabio. - Denies current ear pain but reported s evere earaches and nasal symptoms in May, which have since resolved. - Reports chest tightness unrelieved by her albuterol inhaler and persistent mucus production, despite using Mucinex and Advil. - Negative COVID tests, no history of th e virus, heart rate and oxygen saturation within normal limits. - Unable to afford Symbicort, using only albuterol inhaler although it seems ineffective currently. - Previous adverse response to prednison e, avoiding its use. Physical Exam General: Cooperative, healthy appearing, comfortable and no acute distress Orientation/consciousness: Patient oriented x3 Limitations: No limitations Head: Normal to inspection Ears: Hearing grossly normal bilaterally, external ears normal and TM's normal bilaterally Nose: Normal external nose present, Normal nares present and No nasal discharge present Face and sinus: Normal facial exam and Yes sinuses nontender Mouth: Normal oral and palatal mucosa present and moist mucous membranes Throat: Yes tonsils normal, Yes uvula midline. Posterior oropharynx erythema Eyes: Appearance normal, both eyes and all related structures Neck: Normal visual inspection Respiratory: Clear but dim to auscultation bilaterally. Normal respiratory effort, able to speak in complete sentences, Actively coughing, no respiratory distress, not tachypneic, no tripod positioning and no use of accessory muscles. Cardiovascular: Regular rate and rhythm. Normal S1 and S2 Skin: No rashes or lesions noted Neuro: Patient oriented x3 Extremities: Normal to inspection and Yes no clubbing, cyanosis or edema PFSH Medical History Chronic bronchitis Surgical History Hx of tonsillectomy H/O right knee surgery Family History Father Cancer Paternal Grandmother Cancer Mother CAD (coronary artery disease) Social History Housing: Apartment Alcohol intake: current Alcohol intake frequency: a few times a week Patient Tobacco Use Status: Former Tobacco user Tobacco use type: Cigarette Cigarettes Per Day: 5 e-Cigarette/Vaping Use: Never Used service: No Current occupational status: employed Cognitive needs: No Hearing needs: No Vision needs: Yes Review of Systems Const All systems reviewed & are unremarkable except as noted in HPI and below Physical Exam Vital Signs: Last Vital Signs Temp 98 F 07/27/24 14:14 Pulse 90 07/27/24 14:14 BP 124/80 07/27/24 14:14 Pulse Ox 98 07/27/24 14:14 Oxygen Delivery Method Room Air 07/27/24 14:14 BMI result Body Mass Index 33.7 Office Procedures Nebulizer Treatment Nebulizer Treatment 05950-Khktfofyy/MDI RX initial, or Nebulizer Subsequent Treatment Office Meds ipratropium 0.5 mg-albuterol 3 mg (2.5 mg base)/3 mL nebulization soln Performing Provider: Nona Ingram PA-C Performing Location: [facility] [place] [facility] Administered by: Nona Ingram PA-C on 07/27/24 14:31 Dose Route Admin Location Dispensed Lot Number Expiration Date [facility] Pricing Consultant 3 mL inhalation 3 mL [id number] 10/23/25 80796-823-44 [employer] Assessment & Plan Assessment & Plan (1) Lower respiratory infection (e.g., bronchitis, pneumonia, pneumonitis, pulmonitis): Code(s): J22 - Unspecified acute lower respiratory infection Plan: Duoneb treatment given in office with great relief. A chest X-ray has been ordered to assess for any underlying respiratory issues such as pneumonia, considering the current symptoms. The patient will commence a course of Z-Fabio Azithromycin for its potential anti-inflammatory benefits. Should the chest X- ray reveal pneumonia, Augmentin will be added to the regimen. Financial concerns regarding Symbicort were discussed, and pt is aware she should discuss alternative treatment plans with her PCP. Patient was informed and verbally consented to the use of an ambient scribe for clinic note documentation during this visit Orders: Orders XR chest 2V Today R05.9 - Cough, unspecified AMB Nebulizer Treatment Today J22 - Unspecified acute lower respiratory infection Medications: New azithromycin For 250 mg dose pack: take 500 mg today (day 1), then 250 mg for 4 days (days 2-5) PO 6 tabs 0RF Coding Level of Care Code Est Pt Level 4 (13658) Diagnoses Lower respiratory infection (e.g., bronchitis, pneumonia, pneumonitis, pulmonitis) J22 CPT Codes Nebulizer Treatment - Nebulizer Treatment, initial or subsequent: 57632- Nebulizer/MDI RX initial, or Nebulizer Subsequent Treatment ([id number])
[2024-07-27 14:14] VITALS: BP 124/80; PULSE 90; TEMP 36.6; O2SAT 98; BMI 33.7
== END 2024-07-27 14:44 | disposition home or self-care (01) ==
PROVIDERS: PCP Internal Medicine; Visit Provider Physician Assistant
DX: J22 Unspecified acute lower respiratory infection (principal)

== ENCOUNTER → 2024-07-27 14:45 | Outpatient (BNV) | payer OTHER, SELFPAY | PROVIDERS: PCP Internal Medicine; Visit Provider Radiology Diagnostic Radiology | DX: Z00.00 Encounter for general adult medical examination without abnormal findings (principal) | CPT/HCPCS: 71046 ==

== ENCOUNTER 2024-12-02 14:03 | Outpatient (AMB) | payer OTHER, SELFPAY ==
[2024-12-02 14:06] VITALS: BP 128/80; PULSE 71; O2SAT 97; BMI 34.2
--- NOTE | 2024-12-02 14:06 | A.OFFPC_ITS ---
Vital Signs 12/02/24 14:06 Height 5 ft 3 in Weight 193 lb 2 oz BMI 34.2 BP 128/80 Blood Pressure Location Rt brachial Position Sitting Pulse 71 Pulse Source Pulse Oximeter Pulse Oximetry (%) 97 Oxygen Delivery Method Room Air Intake Visit Reasons: Annual PE- see comments Allergies No Known Allergies Allergy (Mild, Verified 12/02/24 14:08) NONE Medication List - Last Reconciled 12/02/24 by Marlene Dumont MD albuterol sulfate 90 mcg/actuation 1 inh inhalation QID PRN budesonide-formoterol 160-4.5 mcg/actuation (Symbicort) 2 puffs inhalation BID 30 days Tobacco use date assessed: 12/02/24 Dental Screening Dental Screen Date: 12/02/24 Did you have a dental visit in the last 12 months?: Yes Did you have a dental problem in the last 6 months where you did not have access to dental care?: No Was dental information given to patient?: Patient has dentist HPI Annual PE- see comments HPI Details PE apt - The patient is a 64-year-old female pr esenting for a wellness visit and management of chronic conditions. - Chronic Obstructive Pulmonary Disease: The patient reports a history of COPD and continues to use albuterol for symptomatic relief. She has not been using Symbicort due to its cost. - Smoking History: The patient has a his tory of smoking for 42 years, previously at a rate of approximately half a pack per day. She quit smoking seven months ago, citing difficulty breathing as the main reason for cessation. - Trigger Finger: The patient reports in termittent locking of her left index finger and toes, suggesting difficulty with movement, though currently without need for medication. - Osteoarthritis: She mentions joint soni n in the hands, specifically knuckles, attributed to osteoarthritis. She employs non-pharmacologic measures such as dealing with stiffness through regular activity and acknowledges mild discomfort. - Menopause: The patient has completed m enopause and is concerned about potential bone density issues, given her smoking history. Health Maintenance - Due for mammogram screening. - Cologuard test preferred for colon can cer screening. - Pap smear is due for cervical cancer s creening. - Discussed need for bone density (DEXA) scan. - Encouraged weight management and consi dering medication for weight loss in the future. - Recommends Vitamin D supplementation p ending level check. - Encouraged pulmonary function testing. 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 Patient Instructions - Schedule and complete a mammogram. - Undergo DEXA scan for bone density vladimir sky. - Use the Cologuard test for colorectal cancer screening. - Continue using albuterol as needed and discuss affordable inhaler options. - Monitor COPD symptoms and consider pul monary function testing. - Initiate Vitamin D supplementation if levels are inadequate. - Engage in weight management strategies and consider follow-up for weight loss medication discussion. Review of Systems - General: No fever no chills - Neurological: No headaches no dizzin ess - Ear nose throat: No sore throat no hearing difficulty no ear pain - Cardiovascular: No syncope, no chest pain, no palpitations - Gastrointestinal: No nausea vomiting or diarrhea - Endocrine: No polyuria polydipsia no heat intolerance - Genitourinary: No dysuria - Skin: No new complaints Physical Exam General: Cooperative, healthy appearing, comfortable, no acute distress Orientation: Patient oriented x3 Head: Normal to inspection Ears: Within normal limit visually Nose: Normal external nose present Face and sinus: Normal facial exam Eyes: Appearance normal, extraocular movement intact pupils reactive Neck: Normal visual inspection and supple Respiratory: Normal respiratory effort and able to speak in complete sentences. Clear to auscultation, no stridor Cardiovascular: S1 and S2 RRR Breast exam benign GI: Normal to inspection. Soft to palpation and nontender Skin: Turgor normal, no acute findings Neuro: Patient oriented x3, motor sensory intact, balance intact, tandem pass Extremities: Normal to inspection, small joint arthrits hands noticed PFSH Medical History Chronic bronchitis Surgical History Hx of tonsillectomy H/O right knee surgery Family History Father Cancer Paternal Grandmother Cancer Mother CAD (coronary artery disease) Social History Housing: Apartment Alcohol intake: current Alcohol intake frequency: a few times a week Patient Tobacco Use Status: Former Tobacco user Tobacco use type: Cigarette Cigarettes Per Day: 5 e-Cigarette/Vaping Use: Never Used service: No Current occupational status: employed Cognitive needs: No Hearing needs: No Vision needs: Yes Questionnaire PHQ-9 Over the last 2 weeks, how often have you been bothered by any of the following problems? 1. Little interest or pleasure in doing things: not at all 2. Feeling down, depressed, or hopeless: not at all 3. Trouble falling or staying asleep, or sleeping too much: not at all 4. Feeling tired or having little energy: not at all 5. Poor appetite or overeating: not at all 6. Feeling bad about yourself - or that you are a failure or have let yourself or your family down: not at all 7. Trouble concentrating on things, such as reading the newspaper or watching television: not at all 8. Moving or speaking so slowly that other people could have noticed. Or the opposite - being so fidgety or restless that you have been moving around a lot more than usual: not at all 9. Thoughts that you would be better off or of hurting yourself in some way: not at all Total score: 0 Depression Screening Interpretation: Negative Depression Screening Done: Yes 33800 - PHQ-9 Billing: Yes Source: Developed by Drs. Valentín Russo, Yadi Cho, Quoc Son and colleagues, with an educational jef from [employer]. Thrive Questionnaire Date Thrive assessed: 12/02/24 I am a: Patient What is your living situation today?: I have a steady place to live Within the past 12 months, did the food you bought not last and you didn't have the money to get more?: Never true Within the past 12 months, did you worry whether your food would run out before you got money to buy more?: Never true Do you have trouble paying for medicines?: No Do you have trouble getting transportation to medical appointments?: No Do you have trouble paying your heating and electricity bill?: No Do you have trouble taking care of your child, family member or friend?: No Do you have trouble with day-to-day activities such as bathing, preparing meals, shopping, managing finances, etc.?: No Are you currently unemployed and looking for a job?: No Are you interested in more education?: No Please select the resources that you would like help with: None Currently or been in a relationship where the following occur: No concerns reported THRIVE Score: 0 AUDIT C Alcohol Use Questionnaire (AUDIT-C) 1. How often do you have a drink containing alcohol?: 2-3 times a week 2. How many drinks containing alcohol do you have on a typical day when you are drinking?: 1 or 2 3. How often do you have six or more drinks on one occasion?: Never Total Score: 3 Score Reviewed/Action Taken: Yes KIRAN-7 AMB Questionnaire KIRAN-7 Date KIRAN - 7 assessed: 12/02/24 Feeling nervous, anxious, or on edge: 0 = Not at all Not being able to stop or control worryin = Not at all Worrying too much about different things: 0 = Not at all Trouble relaxin = Not at all Being so restless that it is hard to sit still: 0 = Not at all Becoming easily annoyed or irritable: 0 = Not at all Feeling afraid as if something awful might happen: 0 = Not at all Total KIRAN-7 score (0-4 normal; 5-9 mild; 10-14 moderate; 15-21 severe): 0 Source: Developed by Drs. Valentín Russo, Yadi Cho, Quoc Son and colleagues, with an educational jef from [employer]. KIRAN-7 Assessment Billing KIRAN-7 Assessment Tool: KIRAN-7 Assessment 28099 Physical exam (Primary Care) Vital Signs: Last Vital Signs Pulse 71 12/02/24 14:06 BP 128/80 12/02/24 14:06 Pulse Ox 97 12/02/24 14:06 Oxygen Delivery Method Room Air 12/02/24 14:06 BMI result Body Mass Index 34.2 Tobacco/Smoking Status: Tobacco use Status Tobacco use date assessed 12/02/24 12/02/24 14:10 Patient Tobacco Use Status Former Tobacco user 12/02/24 14:10 Tobacco use type Cigarette 12/02/24 14:10 e-Cigarette/Vaping Use Never Used 12/02/24 14:10 PHQ-9: PHQ-9 Score PHQ-9: Total score 0 12/02/24 14:10 Depression Screening Interpretation: Negative Thrive Assessment: Date of Thrive Assessment Date Thrive assessed 12/02/24 12/02/24 14:10 Currently or been in a relationship where the following occur: No concerns reported Coding Level of Care Code Est Pt Level 4 (30071) Est Pt Prev Care 40-64y(42515) Diagnoses Encounter for general adult medical examination with abnormal findings Z00.01 Chronic obstructive pulmonary disease, unspecified COPD type J44.9 COPD type: unspecified COPD Pain in both hands M79.641; M79.642 Menopausal state N95.1 Skin cancer screening Z12.83 Class 1 obesity due to excess calories without serious comorbidity with body mass index (BMI) of 31.0 to 31.9 in adult E66.09; Z68.31 Obesity classification: adult class 1 (BMI 30 - 34.9) Serious obesity comorbidity presence: without serious comorbidity Body mass index: BMI 31.0-31.9 Additional Codes KIRAN-7 Assessment Billing - KIRAN-7 Assessment Tool: KIRAN-7 Assessment 95851 ([id number]) PHQ-9 - 04496 - PHQ-9 Billing: Yes ([id number]) Assessment & Plan Assessment & Plan (1) Encounter for general adult medical examination with abnormal findings: Code(s): Z00.01 - Encounter for general adult medical examination with abnormal findings Category: Medical (2) COPD (chronic obstructive pulmonary disease): Code(s): J44.9 - Chronic obstructive pulmonary disease, unspecified Category: Medical Qualifiers: COPD type: unspecified COPD Qualified Code(s): J44.9 - Chronic obstructive pulmonary disease, unspecified (3) Pain in both hands: Code(s): M79.641 - Pain in right hand; M79.642 - Pain in left hand Category: Medical (4) Menopausal state: Code(s): N95.1 - Menopausal and female climacteric states Category: Medical (5) Skin cancer screening: Code(s): Z12.83 - Encounter for screening for malignant neoplasm of skin Category: Medical (6) Obesity due to excess calories: Code(s): E66.09 - Other obesity due to excess calories Category: Medical Qualifiers: Obesity classification: adult class 1 (BMI 30 - 34.9) Serious obesity comorbidity presence: without serious comorbidity Body mass index: BMI 31.0- 31.9 Qualified Code(s): E66.09 - Other obesity due to excess calories; Z68.31 - Body mass index [BMI] 31.0-31.9, adult Plan PE apt - The patient is a 64-year-old female presenting for a wellness visit and management of chronic conditions. - Chronic Obstructive Pulmonary Disease: The patient reports a history of COPD and continues to use albuterol for symptomatic relief. She has not been using Symbicort due to its cost. - Smoking History: The patient has a history of smoking for 42 years, previously at a rate of approximately half a pack per day. She quit smoking seven months ago, citing difficulty breathing as the main reason for cessation. - Trigger Finger: The patient reports intermittent locking of her left index finger and toes, suggesting difficulty with movement, though currently without need for medication. - Osteoarthritis: She mentions joint pain in the hands, specifically knuckles, attributed to osteoarthritis. She employs non-pharmacologic measures such as dealing with stiffness through regular activity and acknowledges mild discomfort. - Menopause: The patient has completed menopause and is concerned about potential bone density issues, given her smoking history. Health Maintenance - Due for mammogram screening. - Cologuard test preferred for colon cancer screening. - Pap smear is due for cervical cancer screening. - Discussed need for bone density (DEXA) scan. - Encouraged weight management and considering medication for weight loss in the future. - Recommends Vitamin D supplementation pending level check. - Encouraged pulmonary function testing. Medications - Albuterol (for COPD) Employment - She is employed by a [email or web address] and expresses concerns about the limitations of her current health insurance coverage. Patient Instructions - Schedule and complete a mammogram. - Undergo DEXA scan for bone density evaluation. - Use the Cologuard test for colorectal cancer screening. - Continue using albuterol as needed and discuss affordable inhaler options. - Monitor COPD symptoms and consider pulmonary function testing. - Initiate Vitamin D supplementation if levels are inadequate. - Engage in weight management strategies and consider follow-up for weight loss medication discussion. Orders: Orders Comprehensive Met. Panel Today J44.9 - Chronic obstructive pulmonary disease, unspecified, M79.641 - Pain in right hand, M79.642 - Pain in left hand, Z00.01 - Encounter for general adult medical examination with abnormal findings TSH reflex Free T4 Today J44.9 - Chronic obstructive pulmonary disease, unspecified, M79.641 - Pain in right hand, M79.642 - Pain in left hand, Z00.01 - Encounter for general adult medical examination with abnormal findings Magnesium Today J44.9 - Chronic obstructive pulmonary disease, unspecified, M79.641 - Pain in right hand, M79.642 - Pain in left hand, Z00.01 - Encounter for general adult medical examination with abnormal findings PFT pulmonary function test Today J44.9 - Chronic obstructive pulmonary disease, unspecified MM tomosynthesis screening BI Today Z12.31 - Encounter for screening mammogram for malignant neoplasm of breast Complete Blood Count Auto Diff Today J44.9 - Chronic obstructive pulmonary disease, unspecified, M79.641 - Pain in right hand, M79.642 - Pain in left hand, Z00.01 - Encounter for general adult medical examination with abnormal findings Lipid Panel Today J44.9 - Chronic obstructive pulmonary disease, unspecified, M79.641 - Pain in right hand, M79.642 - Pain in left hand, Z00.01 - Encounter for general adult medical examination with abnormal findings Vitamin D 25-OH (D2 and D3) Today J44.9 - Chronic obstructive pulmonary disease, unspecified, M79.641 - Pain in right hand, M79.642 - Pain in left hand, Z00.01 - Encounter for general adult medical examination with abnormal findings XR DEXA axial skeleton Today N95.1 - Menopausal and female climacteric states Referrals Cologuard Test Z12.11 - Encounter for screening for malignant neoplasm of colon Dermatology Referral Z12.83 - Encounter for screening for malignant neoplasm of skin [employer] Referral Z01.419 - Encounter for gynecological examination (general) (routine) without abnormal findings
== END 2024-12-02 14:32 | disposition home or self-care (01) ==
LOC: HO.HMCC 14:04
PROVIDERS: PCP Internal Medicine; Visit Provider Internal Medicine
DX: Z00.01 Encounter for general adult medical examination with abnormal findings (principal); J44.9 Chronic obstructive pulmonary disease, unspecified; M79.641 Pain in right hand; M79.642 Pain in left hand; N95.1 Menopausal and female climacteric states; Z12.83 Encounter for screening for malignant neoplasm of skin; E66.09 Other obesity due to excess calories; Z68.31 Body mass index [BMI] 31.0-31.9, adult

== ENCOUNTER → 2024-12-02 14:03 | Outpatient (BNVA) | payer OTHER, SELFPAY | PROVIDERS: PCP Internal Medicine; Visit Provider Internal Medicine | DX: Z00.01 Encounter for general adult medical examination with abnormal findings (principal); J44.9 Chronic obstructive pulmonary disease, unspecified; M79.641 Pain in right hand; M79.642 Pain in left hand; N95.1 Menopausal and female climacteric states; E66.09 Other obesity due to excess calories; Z68.31 Body mass index [BMI] 31.0-31.9, adult; Z87.891 Personal history of nicotine dependence | CPT/HCPCS: 96127 ==

== ENCOUNTER 2024-12-23 06:01 | Outpatient (REF) | payer OTHER, SELFPAY ==
[2024-12-23 10:18] LABS: MANUAL DIFF FLAG NO
[2024-12-23 10:24] LABS: Basophils Absolute Auto 0.1 X10*3/uL (0.0-0.2); Basophils Percent Auto 1.3 % (0-2); Eosinophils Absolute Auto 0.2 X10*3/uL (0.0-0.4); Eosinophils Percent Auto 3.5 % (0-4); Hemoglobin 13.1 g/dl (12.0-16.0); Imm Gran Abs Auto 0.02 X10*3/uL (0.00-0.03); Imm Gran Pct Auto 0.3 % (0.0-0.4); Lymphocytes Absolute Auto 2.1 X10*3/uL (1.2-4.9); Lymphocytes Percent Auto 35.5 % (20-40); Mean Corpuscular Hemoglobin 27.9 pg (27.0-33.0); Mean Corpuscular Volume 87.4 fL (80.0-98.0); Monocytes Absolute Auto 0.5 X10*3/uL (0.1-1.2); Monocytes Percent Auto 7.9 % (2-11); Neutrophils Absolute Auto 3.1 x10*3/uL (2.0-8.3); Neutrophils Percent Auto 51.5 % (45-73); Platelet Count 277 X10*3/uL (160-400); Red Blood Count 4.69 X10*6/uL (4.20-5.50); Red Cell Distribution Width 13.3 % (11.0-16.0); White Blood Count 5.9 X10*3/uL (4.8-10.8)
[2024-12-23 10:48] LABS: Alanine Aminotransferase 39 U/L (0-31); Albumin Level 4.4 g/dL (3.5-5.0); Alkaline Phosphatase 102 U/L (39-117); Anion Gap 13 (12-20); Aspartate Amino Transferase 36 U/L (5-31); Bilirubin Total 0.7 mg/dL (0.0-1.0); Blood Urea Nitrogen 15 mg/dL (9-16); Calcium 9.7 mg/dL (8.4-10.2); Carbon Dioxide 25 mmol/L (22-29); Chloride 105 mmol/L (96-108); Cholesterol 247 mg/dL (<200); Estimated Glomerular Filt Rate > 60; Glucose Random 102 mg/dL (60-115); HDL Cholesterol 94 mg/dL (>40); LDL Cholesterol Calculated 132 mg/dL (<100); Potassium 4.3 mmol/L (3.3-5.1); Sodium 139 mmol/L (135-145); Total Protein 7.2 g/dL (6.5-8.0); Triglycerides 106 mg/dL (<150)
[2024-12-23 11:07] LABS: TSH reflex Free T4 3.38 uIU/mL (0.32-4.0)
[2024-12-26 16:34] LABS: Vitamin D 25-OH, D2 <4 ng/mL; Vitamin D 25-OH, D3 13 ng/mL; Vitamin D 25-OH, Total 13 ng/mL (30-100)
== END 2024-12-23 06:02 | disposition home or self-care (01) ==
LOC: HO.HMGCLDS 06:01
PROVIDERS: PCP Internal Medicine; Visit Provider Internal Medicine
DX: Z00.01 Encounter for general adult medical examination with abnormal findings (principal); J44.9 Chronic obstructive pulmonary disease, unspecified; M79.641 Pain in right hand; M79.642 Pain in left hand; Z13.6 Encounter for screening for cardiovascular disorders
CPT/HCPCS: 36415; 80053; 80061; 82306; 83735; 84443; 85025

== ENCOUNTER 2025-01-01 14:20 | Outpatient (AMB) | payer OTHER, SELFPAY ==
--- NOTE | 2025-01-01 14:22 | A.OFFPC_ITS ---
Vital Signs 01/01/25 14:24 Height 5 ft 3 in Weight 195 lb BMI 34.5 BP 124/80 Blood Pressure Location Rt brachial Position Sitting Pulse 94 Pulse Source Pulse Oximeter Temp 98.2 F Temp Source Oral Pulse Oximetry (%) 100 Oxygen Delivery Method Room Air Intake Visit Reasons: 3 week follow up - see comments Allergies No Known Allergies Allergy (Mild, Verified 12/02/24 14:08) NONE Medication List - Last Reconciled 01/01/25 by Marlene Dumont MD albuterol sulfate 90 mcg/actuation 1 inh inhalation QID PRN budesonide-formoterol 160-4.5 mcg/actuation (Symbicort) 2 puffs inhalation BID 30 days Tobacco use date assessed: 12/02/24 Dental Screening Dental Screen Date: 12/02/24 HPI 3 week follow up - see comments HPI Details History - The patient is a 64-year-old female pr esenting with follow-up for blood work results including cholesterol management and weight loss discussion. - The patient had labs ordered on November h, including ongoing issues in managing hyperlipidemia. - Recent laboratory evaluations indicate d liver enzyme levels slightly elevated; common with patients who are overweight but not deemed alarming at present. - The LDL cholesterol was found at 132 m g/dL. Although within a tolerable range, cholesterol remains an area for improvement for cardiovascular health. - A significant concern for the patient is weight management, citing difficulty losing weight despite dietary mindfulness. - Previous dietary modifications include d low-fat and low-carbohydrate meals, aiming for a caloric intake of roughly 1200 calories per day. These efforts rendered effective weight reduction in the past but currently have not led to similar progress. - The patient reports quitting smoking e ight years prior, no return to previous baseline weight, and difficulty with significant weight gain post-smoking cessation. - Vitamin D deficiency was noted in lab results, requiring supplementation for overall health improvement. - The patient has a history of leg cramp s and trigger fingers, suggestive of potential electrolyte imbalances. - In general, patient health goals inclu de improved laboratory markers and successful weight loss strategies. Medications: - The patient is currently not using any specified medications. Any supplements such as magnesium or vitamin D were recommended but have yet to be initiated. Social History: - The patient is not currently consuming caffeine beverages to avoid pa lpitations and jitters, prefers decaffeinated options. - Reports post smoking cessation eight y ears prior, which has significant concerns with accompanying weight gain and challenges in weight loss thereafter. - Nutrition-soto, the patient is mindful of consuming low-fat, low-carb diets aimed at around 1200 calories daily, without achieving the previous degree of effective weight decline. - Engages in calorie tracking and practi tasneem portion control to manage weight. - The patient is experiencing leg cramps and may benefit from magnesium supplementation. Diagnostic Results: - Labs: Comprehensive Blood Count (CBC) normal with no anemia or inflammation. - Labs: Electrolytes and kidney function tests within normal limits. - Labs: Liver enzymes slightly elevated but not concerning. - Labs: LDL cholesterol at 132 mg/dL. - Labs: Vitamin D levels found to be fiona y low. - Labs: Thyroid function normal. Problem List - Elevated Liver Enzymes - Hyperlipidemia - Vitamin D Deficiency - obesity Patient Instructions - Begin taking ymea-sub-joahgum Vitamin D supplements, 1000 units daily. - Consider magnesium supplements for leg cramping, to be collected at the pharmacy. - Continue calorie-counting and maintain ing a balanced, nutritious diet while exploring appetite suppression or weight loss-enhancing options. - Consult physician if intolerant to any prescribed or suggested medication. - Report any new symptoms or lack of imp rovement with weight to explore further intervention. - Follow through on all upcoming appoint ments, including bone density and HOT REPAIRMAN assessments. Review of Systems - General: No fever no chills - Neurological: No headaches no dizziness - Ear nose throat: No sore throat no hearing difficulty no ear pain - Cardiovascular: No syncope, no chest pain, no palpitations - Gastrointestinal: No nausea vomiting or diarrhea - Endocrine: No polyuria polydipsia no heat intolerance - Genitourinary: No dysuria , no blood in urine Physical Exam - General: No acute distress - HEENT: No acute findings - Neck: Supple - Respiratory system: Able to talk in f ull sentences, no audible wheeze - Cardiovascular: S1-S2 - Gastrointestinal: No pain - Extremities: No new findings - 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 - Skin: Normal turgor PFSH Medical History Chronic bronchitis Surgical History Hx of tonsillectomy H/O right knee surgery Family History Father Cancer Paternal Grandmother Cancer Mother CAD (coronary artery disease) Social History Housing: Apartment Alcohol intake: current Alcohol intake frequency: a few times a week Patient Tobacco Use Status: Former Tobacco user Tobacco use type: Cigarette Cigarettes Per Day: 5 e-Cigarette/Vaping Use: Never Used service: No Current occupational status: employed Cognitive needs: No Hearing needs: No Vision needs: Yes Questionnaire Thrive Questionnaire Date Thrive assessed: 12/02/24 I am a: Patient What is your living situation today?: I have a steady place to live Within the past 12 months, did the food you bought not last and you didn't have the money to get more?: Never true Within the past 12 months, did you worry whether your food would run out before you got money to buy more?: Never true Do you have trouble paying for medicines?: No Do you have trouble getting transportation to medical appointments?: No Do you have trouble paying your heating and electricity bill?: No Do you have trouble taking care of your child, family member or friend?: No Do you have trouble with day-to-day activities such as bathing, preparing meals, shopping, managing finances, etc.?: No Are you currently unemployed and looking for a job?: No Are you interested in more education?: No Please select the resources that you would like help with: None Currently or been in a relationship where the following occur: No concerns reported THRIVE Score: 0 KIRAN-7 AMB Questionnaire KIRAN-7 Date KIRAN - 7 assessed: 12/02/24 Source: Developed by Drs. Valentín Russo, Yadi Cho, Quoc Son and colleagues, with an educational jef from [employer]. Physical exam (Primary Care) Vital Signs: Last Vital Signs Temp 98.2 F 01/01/25 14:24 Pulse 94 01/01/25 14:24 BP 124/80 01/01/25 14:24 Pulse Ox 100 01/01/25 14:24 Oxygen Delivery Method Room Air 01/01/25 14:24 BMI result Body Mass Index 34.5 Tobacco/Smoking Status: Tobacco use Status Tobacco use date assessed 12/02/24 01/01/25 14:27 Patient Tobacco Use Status Former Tobacco user 01/01/25 14:27 Tobacco use type Cigarette 01/01/25 14:27 e-Cigarette/Vaping Use Never Used 01/01/25 14:27 Thrive Assessment: Date of Thrive Assessment Date Thrive assessed 12/02/24 01/01/25 14:27 Currently or been in a relationship where the following occur: No concerns reported Coding Level of Care Code Est Pt Level 3 (95921) Diagnoses Class 1 obesity due to excess calories without serious comorbidity with body m ass index (BMI) of 31.0 to 31.9 in adult E66.09; Z68.31 Obesity classification: adult class 1 (BMI 30 - 34.9) Serious obesity comorbidity presence: without serious comorbidity Body mass index: BMI 31.0-31.9 Chronic obstructive pulmonary disease, unspecified COPD type J44.9 COPD type: unspecified COPD Vitamin D deficiency E55.9 Leg cramps R25.2 Assessment & Plan Assessment & Plan (1) Obesity due to excess calories: Code(s): E66.09 - Other obesity due to excess calories Category: Medical Qualifiers: Obesity classification: adult class 1 (BMI 30 - 34.9) Serious obesity comorbidity presence: without serious comorbidity Body mass index: BMI 31.0- 31.9 Qualified Code(s): E66.09 - Other obesity due to excess calories; Z68.31 - Body mass index [BMI] 31.0-31.9, adult (2) COPD (chronic obstructive pulmonary disease): Code(s): J44.9 - Chronic obstructive pulmonary disease, unspecified Category: Medical Qualifiers: COPD type: unspecified COPD Qualified Code(s): J44.9 - Chronic obstructive pulmonary disease, unspecified (3) Vitamin D deficiency: Code(s): E55.9 - Vitamin D deficiency, unspecified Category: Medical (4) Leg cramps: Code(s): R25.2 - Cramp and spasm Category: Medical Plan History - The patient is a 64-year-old female presenting with follow-up for blood work results including cholesterol management and weight loss discussion. - The patient had labs ordered on December 02, including ongoing issues in managing hyperlipidemia. - Recent laboratory evaluations indicated liver enzyme levels slightly elevated; common with patients who are overweight but not deemed alarming at present. - The LDL cholesterol was found at 132 mg/dL. Although within a tolerable range, cholesterol remains an area for improvement for cardiovascular health. - A significant concern for the patient is weight management, citing difficulty losing weight despite dietary mindfulness. - Previous dietary modifications included low-fat and low-carbohydrate meals, aiming for a caloric intake of roughly 1200 calories per day. These efforts rendered effective weight reduction in the past but currently have not led to similar progress. - The patient reports quitting smoking eight years prior, no return to previous baseline weight, and difficulty with significant weight gain post-smoking cessation. - Vitamin D deficiency was noted in lab results, requiring supplementation for overall health improvement. - The patient has a history of leg cramps and trigger fingers, suggestive of potential electrolyte imbalances. - In general, patient health goals include improved laboratory markers and successful weight loss strategies. Medications: - The patient is currently not using any specified medications. Any supplements such as magnesium or vitamin D were recommended but have yet to be initiated. Social History: - The patient is not currently consuming caffeine beverages to avoid palpitations and jitters, prefers decaffeinated options. - Reports post smoking cessation eight years prior, which has significant concerns with accompanying weight gain and challenges in weight loss thereafter. - Nutrition-soto, the patient is mindful of consuming low-fat, low-carb diets aimed at around 1200 calories daily, without achieving the previous degree of effective weight decline. - Engages in calorie tracking and practices portion control to manage weight. - The patient is experiencing leg cramps and may benefit from magnesium supplementation. Diagnostic Results: - Labs: Comprehensive Blood Count (CBC) normal with no anemia or inflammation. - Labs: Electrolytes and kidney function tests within normal limits. - Labs: Liver enzymes slightly elevated but not concerning. - Labs: LDL cholesterol at 132 mg/dL. - Labs: Vitamin D levels found to be very low. - Labs: Thyroid function normal. Problem List - Elevated Liver Enzymes - Hyperlipidemia - Vitamin D Deficiency - obesity Patient Instructions - Begin taking zhen-kgs-ubdudgy Vitamin D supplements, 1000 units daily. - Consider magnesium supplements for leg cramping, to be collected at the pharmacy. - Continue calorie-counting and maintaining a balanced, nutritious diet while exploring appetite suppression or weight loss-enhancing options. - Consult physician if intolerant to any prescribed or suggested medication. - Report any new symptoms or lack of improvement with weight to explore further intervention. - Follow through on all upcoming appointments, including bone density and HOT REPAIRMAN assessments. Medications: New naltrexone-bupropion 8-90 mg 1 tab PO QAM 30 days 30 tabs 0RF Obesity
[2025-01-01 14:24] VITALS: BP 124/80; PULSE 94; TEMP 36.8; O2SAT 100; BMI 34.5
== END 2025-01-01 15:37 | disposition home or self-care (01) ==
LOC: HO.HMCC 14:21
PROVIDERS: PCP Internal Medicine; Visit Provider Internal Medicine
DX: E66.09 Other obesity due to excess calories (principal); Z68.31 Body mass index [BMI] 31.0-31.9, adult; J44.9 Chronic obstructive pulmonary disease, unspecified; E55.9 Vitamin D deficiency, unspecified; R25.2 Cramp and spasm

== ENCOUNTER → 2025-01-01 14:20 | Outpatient (BNVA) | payer OTHER, SELFPAY | PROVIDERS: PCP Internal Medicine; Visit Provider Internal Medicine ==

== ENCOUNTER 2025-02-02 13:10 | Outpatient (AMB) | payer OTHER, SELFPAY ==
[2025-02-02 13:22] VITALS: BP 132/90; PULSE 86; TEMP 36.9; O2SAT 98; BMI 34.0
--- NOTE | 2025-02-02 13:22 | A.OFFPC_ITS ---
Vital Signs 02/02/25 13:22 Height 5 ft 3 in Weight 192 lb 2 oz BMI 34.0 BP 132/90 H Blood Pressure Location Rt brachial Position Sitting Pulse 86 Pulse Source Pulse Oximeter Temp 98.5 F Temp Source Oral Pulse Oximetry (%) 98 Oxygen Delivery Method Room Air Intake Visit Reasons: med management Is last menstrual period known: No Post menopausal: Yes Patient : No Allergies No Known Allergies Allergy (Mild, Verified 02/02/25 13:28) NONE Medication List - Last Reconciled 02/02/25 by Marlene Dumont MD albuterol sulfate 90 mcg/actuation 1 inh inhalation QID PRN bupropion HCl SR 100 mg PO QAM naltrexone 25 mg (1/2 x 50 mg) PO DAILY 15 days Tobacco use date assessed: 02/02/25 Dental Screening Dental Screen Date: 12/02/24 Did you have a dental visit in the last 12 months?: No Did you have a dental problem in the last 6 months where you did not have access to dental care?: No Was dental information given to patient?: Patient has dentist HPI med management HPI Details History - The patient is a 64-year-old female pr esenting with weight management and depression management. - Weight management: The patient reports a weight reduction of three pounds in one month, decreasing from 195 to 192 pounds. She sheds two pounds initially, reflecting the slow progress in weight loss, which she finds disappointing despite sticking to her diet and exercise regimen. The patient is concerned with the pace of weight loss and desires to lose more than three pounds per month. - Depression management: The patient exp resses feelings of depression, particularly missing her significantly. Despite these feelings, she reports engaging in group therapy through hospice in the past, which she found beneficial. She mentions experiencing ups and downs in her emotional state but is currently managing on her own. Medical History: - Depression - obesity Medications: - Naltrexone 25 mg - Bupropion 100 mg Social History: - Exercise: The patient engages in chair yoga and various exercises available online. Previously, she was active in a gym owned by her daughter. - Nutrition: Consumes low-fat and low-ca rb foods. Breakfast typically includes a low-fat [place] muffin with peanut butter, egg sandwich on low-carb bread, omelet, or keto wraps. She prioritizes having a carb with breakfast. - Diet Management: Significant focus on protein intake, predominantly consuming chicken and fish with vegetables during lunch and dinner. The patient is conscientious about portion sizes and uses a kitchen weighing scale to manage protein intake. - Mental Health: Recently experienced jayde addi of depression but has found group therapy through hospice helpful in the past. Presently managing with ups and downs. - Family Status: and intensely m isses her . Problem List - Weight management - Depression Patient Instructions - Continue regular exercise, including c hair yoga and other online exercises. - Do not frequently weigh yourself to av oid mood disturbances. - Maintain a balanced diet with more veg etables, regulate protein to a maximum of three ounces, and include homemade broths. - Opt for healthier alternatives like 30 -calorie [place] crackers instead of bread or wraps. - Continue current medications and adjus t as necessary under medical supervision. - The patient should see a physician in about a month for follow-up and weigh- in. - Continue taking Vitamin D and Magnesiu m as discussed. Review of Systems - General: No fever no chills - Neurological: No headaches no dizziness - Ear nose throat: No sore throat no hearing difficulty no ear pain - Cardiovascular: No syncope, no chest pain, no palpitations - Gastrointestinal: No nausea vomiting or diarrhea - Endocrine: No polyuria polydipsia no heat intolerance - Genitourinary: No dysuria , no blood in urine Physical Exam - General: No acute distress - HEENT: No acute findings - Neck: Supple - Respiratory system: Able to talk in f ull sentences, no audible wheeze - Cardiovascular: S1-S2 regular in rate and rhythm - Gastrointestinal: No pain - Extremities: No new findings - 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 - Skin: Normal turgor PFSH Medical History Chronic bronchitis Surgical History Hx of tonsillectomy H/O right knee surgery Family History Father Cancer Paternal Grandmother Cancer Mother CAD (coronary artery disease) Social History Housing: Apartment Alcohol intake: current Alcohol intake frequency: a few times a week Patient Tobacco Use Status: Former Tobacco user Tobacco use type: Cigarette Cigarettes Per Day: 5 e-Cigarette/Vaping Use: Never Used service: No Current occupational status: employed Cognitive needs: No Hearing needs: No Vision needs: Yes Questionnaire PHQ-9 Over the last 2 weeks, how often have you been bothered by any of the following problems? 1. Little interest or pleasure in doing things: not at all 2. Feeling down, depressed, or hopeless: not at all 3. Trouble falling or staying asleep, or sleeping too much: not at all 4. Feeling tired or having little energy: not at all 5. Poor appetite or overeating: not at all 6. Feeling bad about yourself - or that you are a failure or have let yourself or your family down: not at all 7. Trouble concentrating on things, such as reading the newspaper or watching television: not at all 8. Moving or speaking so slowly that other people could have noticed. Or the opposite - being so fidgety or restless that you have been moving around a lot more than usual: not at all 9. Thoughts that you would be better off or of hurting yourself in some way: not at all Total score: 0 Depression Screening Interpretation: Negative Depression Screening Done: Yes 53105 - PHQ-9 Billing: Yes Source: Developed by Drs. Valentín Russo, Yadi Cho, Quoc Son and colleagues, with an educational jef from [employer]. Thrive Questionnaire Date Thrive assessed: 02/02/25 I am a: Patient What is your living situation today?: I have a steady place to live Within the past 12 months, did the food you bought not last and you didn't have the money to get more?: Never true Within the past 12 months, did you worry whether your food would run out before you got money to buy more?: Never true Do you have trouble paying for medicines?: No Do you have trouble getting transportation to medical appointments?: No Do you have trouble paying your heating and electricity bill?: No Do you have trouble taking care of your child, family member or friend?: No Do you have trouble with day-to-day activities such as bathing, preparing meals, shopping, managing finances, etc.?: No Are you currently unemployed and looking for a job?: No Are you interested in more education?: No Please select the resources that you would like help with: None Currently or been in a relationship where the following occur: No concerns reported THRIVE Score: 0 KIRAN-7 AMB Questionnaire KIRAN-7 Date KIRAN - 7 assessed: 12/02/24 Source: Developed by Drs. Valentín Russo, Yadi Cho, Quoc Son and colleagues, with an educational jef from [employer]. Physical exam (Primary Care) Vital Signs: Last Vital Signs Temp 98.5 F 02/02/25 13:22 Pulse 86 02/02/25 13:22 BP 132/90 H 02/02/25 13:22 Pulse Ox 98 02/02/25 13:22 Oxygen Delivery Method Room Air 02/02/25 13:22 BMI result Body Mass Index 34.0 Tobacco/Smoking Status: Tobacco use Status Tobacco use date assessed 02/02/25 02/02/25 13:30 Patient Tobacco Use Status Former Tobacco user 02/02/25 13:30 Tobacco use type Cigarette 02/02/25 13:30 e-Cigarette/Vaping Use Never Used 02/02/25 13:30 PHQ-9: PHQ-9 Score PHQ-9: Total score 0 02/02/25 13:30 Depression Screening Interpretation: Negative Thrive Assessment: Date of Thrive Assessment Date Thrive assessed 02/02/25 02/02/25 13:30 Currently or been in a relationship where the following occur: No concerns reported Coding Level of Care Code Est Pt Level 3 (22359) Diagnoses Class 1 obesity due to excess calories without serious comorbidity with body mass index (BMI) of 31.0 to 31.9 in adult E66.09; Z68.31 Obesity classification: adult class 1 (BMI 30 - 34.9) Serious obesity comorbidity presence: without serious comorbidity Body mass index: BMI 31.0-31.9 Mild major depression, single episode F32.0 Additional Codes PHQ-9 - 57092 - PHQ-9 Billing: Yes ([id number]) Assessment & Plan Assessment & Plan (1) Obesity due to excess calories: Code(s): E66.09 - Other obesity due to excess calories Category: Medical Qualifiers: Obesity classification: adult class 1 (BMI 30 - 34.9) Serious obesity comorbidity presence: without serious comorbidity Body mass index: BMI 31.0- 31.9 Qualified Code(s): E66.09 - Other obesity due to excess calories; Z68.31 - Body mass index [BMI] 31.0-31.9, adult (2) Mild major depression, single episode: Code(s): F32.0 - Major depressive disorder, single episode, mild Category: Medical Plan History - The patient is a 64-year-old female presenting with weight management and depression management. - Weight management: The patient reports a weight reduction of three pounds in one month, decreasing from 195 to 192 pounds. She sheds two pounds initially, reflecting the slow progress in weight loss, which she finds disappointing despite sticking to her diet and exercise regimen. The patient is concerned with the pace of weight loss and desires to lose more than three pounds per month. - Depression management: The patient expresses feelings of depression, particularly missing her significantly. Despite these feelings, she reports engaging in group therapy through hospice in the past, which she found beneficial. She mentions experiencing ups and downs in her emotional state but is currently managing on her own. Medical History: - Depression - obesity Medications: - Naltrexone 25 mg - Bupropion 100 mg Social History: - Exercise: The patient engages in chair yoga and various exercises available online. Previously, she was active in a gym owned by her daughter. - Nutrition: Consumes low-fat and low-carb foods. Breakfast typically includes a low-fat [place] muffin with peanut butter, egg sandwich on low-carb bread, omelet, or keto wraps. She prioritizes having a carb with breakfast. - Diet Management: Significant focus on protein intake, predominantly consuming chicken and fish with vegetables during lunch and dinner. The patient is conscientious about portion sizes and uses a kitchen weighing scale to manage protein intake. - Mental Health: Recently experienced feelings of depression but has found group therapy through hospice helpful in the past. Presently managing with ups and downs. - Family Status: and intensely misses her . Problem List - Weight management - Depression Patient Instructions - Continue regular exercise, including chair yoga and other online exercises. - Do not frequently weigh yourself to avoid mood disturbances. - Maintain a balanced diet with more vegetables, regulate protein to a maximum of three ounces, and include homemade broths. - Opt for healthier alternatives like 30-calorie [place] crackers instead of bread or wraps. - Continue current medications and adjust as necessary under medical supervision. - The patient should see a physician in about a month for follow-up and weigh- in. - Continue taking Vitamin D and Magnesium as discussed. Medications: Changed From naltrexone Do not drink alcohol while taking this medication 25 mg (1/2 x 50 mg) PO DAILY 15 days 8 tabs 0RF To naltrexone Do not drink alcohol while taking this medication 50 mg PO DAILY 30 tabs 0RF 30 days From bupropion HCl SR 100 mg PO QAM 30 tabs 0RF To bupropion HCl SR 200 mg PO QAM 30 tabs 0RF 30 days
== END 2025-02-02 13:44 | disposition home or self-care (01) ==
LOC: HO.HMCC 13:11
PROVIDERS: PCP Internal Medicine; Visit Provider Internal Medicine
DX: E66.09 Other obesity due to excess calories (principal); Z68.31 Body mass index [BMI] 31.0-31.9, adult; F32.0 Major depressive disorder, single episode, mild

== ENCOUNTER → 2025-02-02 13:10 | Outpatient (BNVA) | payer OTHER, SELFPAY | PROVIDERS: PCP Internal Medicine; Visit Provider Internal Medicine | DX: E66.09 Other obesity due to excess calories (principal); Z68.31 Body mass index [BMI] 31.0-31.9, adult; F32.0 Major depressive disorder, single episode, mild; Z13.31 Encounter for screening for depression | CPT/HCPCS: 96127 ==

== ENCOUNTER 2025-03-12 12:34 | Outpatient (REF) | payer OTHER, SELFPAY ==
--- NOTE | ~2025-03-12 | MM_ITS ---
EXAMINATION: DXA BONE DENSITY AXIAL HISTORY: N95.1 - Menopausal and female climacteric states TECHNIQUE: [employer] Dual energy absorptiometry (DEXA) of the lumbar spine, total left hip, and femoral neck was performed. COMPARISON: There are no prior studies for comparison. FINDINGS: The bone mineral density of the lumbar spine is 1.055 g/cm2, corresponding to a T-score of -1.0, and a Z-score of -0.1. This is indicative of normal bone mineral density. The bone mineral density of the left total hip is 1.034 g/cm2, corresponding to a T-score of 0.2, and a Z-score of 0.9. This is indicative of normal bone mineral density. The bone mineral density of the left femoral neck is 0.879 g/cm2, corresponding to a T-score of -1.1, and a Z-score of -0.1. This is indicative of osteopenia. FRACTURE RISK: The FRAX index suggests a risk of major osteoporotic fracture of 20.2%, and of hip fracture 1.8%. MM/XR DEXA axial skeleton IMPRESSION: Based on bone mineral density, and according to World Health Organization (WHO) criteria, the diagnosis is consistent with osteopenia. Statistically, 68% of repeat scans fall within 1 SD (+/- 0.010 g/cm2 for AP spine L1-L4) and 1 SD (+/- 0.012 g/cm2 for femur total) FRAX is a trademark of the [employer], a World Health Organization (WHO) Collaborating Center. Electronically signed by: Valentín Echevarria MD 03/12/2025 02:06 PM EDT
--- NOTE | ~2025-03-12 | MM_ITS ---
EXAMINATION: MM SCREENING DIGITAL BREAST TOMOSYNTHESIS, BILATERAL CLINICAL INFORMATION: Screening. Asymptomatic. COMPARISON: April 06, 2023 TECHNIQUE: Digital breast tomosynthesis is performed in both the craniocaudal and mediolateral oblique views along with computer-aided detection (CAD). Best possible images according to technologist notes. FINDINGS: BREAST COMPOSITION: The breasts are heterogeneously dense, which may obscure small masses (ACR BI-RADS breast composition Category c). BILATERAL BREASTS: No significant masses, suspicious calcifications or other abnormalities are seen in either breast. MM/MM tomosynthesis screening BI IMPRESSION: BILATERAL BREASTS: Negative, no mammographic evidence of malignancy. Normal interval follow-up is recommended in 12 months. ASSESSMENT: BI-RADS 1 - Negative RECOMMENDATION: Routine annual mammography screening. FOLLOW-UP: 1 year F/U This examination should not preclude the clinical evaluation of a suspicious palpable abnormality. This patient's information was entered into a reminder system with a target due date for their next mammogram. Electronically signed by: Malathi Segura MD 03/16/2025 03:00 PM EDT
== END 2025-03-12 12:35 | disposition home or self-care (01) ==
LOC: HO.MAMMO 12:34
PROVIDERS: PCP Internal Medicine; Visit Provider Internal Medicine
DX: Z12.31 Encounter for screening mammogram for malignant neoplasm of breast (principal); Z13.820 Encounter for screening for osteoporosis; Z78.0 Asymptomatic menopausal state
CPT/HCPCS: 77063; 77067; 77080

== ENCOUNTER → 2025-03-12 13:00 | Outpatient (BNV) | payer OTHER, SELFPAY | PROVIDERS: PCP Internal Medicine; Visit Provider Radiology Diagnostic Radiology | DX: E28.39 Other primary ovarian failure (principal) | CPT/HCPCS: 77080 ==

== ENCOUNTER 2025-07-01 14:44 | Outpatient (REF) | payer OTHER, SELFPAY ==
--- NOTE | 2025-07-01 14:49 | PFT_ITS ---
Indication: COPD Spirometry FEV1 to FVC 58%; FEV1 1.27 L; FVC 2.19 L. No significant response to bronchodilators noted. Lung Volumes Total lung capacity 86% predicted; residual volume 109% predicted Diffusion Capacity DLCO 71% predicted Methacholine Challenge [] Flow Volume Loops Obstructive physiology MVV 61% predicted Comparisons None Interpretation There is an obstructive ventilatory defect consistent with moderate COPD. No significant response to bronchodilators noted. Mild decrease in the maximum voluntary ventilation secondary to likely deconditioning. Lung volumes are within normal limits. The patient does have a mild diffusion impairment secondary to the above. Should also correct for hemoglobin. Clinical correlation warranted. MTDD
[2025-07-01 15:34] VITALS: PULSE 85
== END 2025-07-01 14:45 | disposition home or self-care (01) ==
LOC: HO.RESP 14:44
PROVIDERS: PCP Internal Medicine; Visit Provider Internal Medicine
DX: J44.9 Chronic obstructive pulmonary disease, unspecified (principal); Z87.891 Personal history of nicotine dependence
CPT/HCPCS: 94060; 94640; 94727; 94729

== ENCOUNTER → 2025-07-01 14:49 | Outpatient (BNV) | payer OTHER, SELFPAY | PROVIDERS: PCP Internal Medicine; Visit Provider Hospitalist | DX: J98.4 Other disorders of lung (principal) | CPT/HCPCS: 94060; 94727; 94729 ==